=== PATIENT | female | born 1940 | race Caucasian/White ===

== ENCOUNTER → 2019-11-11 07:17 | Outpatient (CLI) | payer MEDICARE, SELFPAY ==
--- NOTE | ~2019-11-11 | XR_ITS ---
EXAMINATION: XR chest 2V EXAM DATE: 11/11/2019 07:55 INDICATION: Cough. TECHNIQUE: Frontal and lateral projections of the chest obtained and reviewed. Comparison is made to prior examination from 10/07/2018. FINDINGS: The lungs are clear. There are no pleural effusions. The cardiomediastinal silhouette is within normal limits. There is no pneumothorax suspected. The bones and soft tissues are unremarkab le. There is no significant interval change. IMPRESSION: No acute cardiopulmonary findings. Reviewed, dictated and finalized at location B. R PHYSICIAN
== END ==
PROVIDERS: PCP Nurse Practitioner; Visit Provider Nurse Practitioner
DX: R05 Cough (principal)
CPT/HCPCS: 71046

== ENCOUNTER 2020-02-24 07:15 | Outpatient (CLI) | payer MEDICARE, SELFPAY ==
--- NOTE | ~2020-02-24 | XR_ITS ---
XR chest 2V 02/24/2020 07:32 Indication: Cough Procedure: PA and lateral views of the chest Comparison: Comparison to multiple prior studies sequentially, with oldest reviewed study dated 11/2015. Findings: Borderline heart size. No focal air space disease, pulmonary edema, pleural effusion or cyn pected pneumothorax. No acute osseous abnormality. There is atherosclerosis of the aorta. Impression: 1: No acute cardiopulmonary disease. Reviewed, dictated and finalized at location A. Impression: 1: No acute cardiopulmonary disease.
== END 2020-02-24 07:16 | disposition home or self-care (01) ==
LOC: ANHIMG 07:21
PROVIDERS: PCP Internal Medicine; Visit Provider Nurse Practitioner
DX: R05 Cough (principal)
CPT/HCPCS: 71046

== ENCOUNTER 2020-08-18 16:38 | Emergency (ER) | payer MEDICARE, SELFPAY ==
[2020-08-18 16:52] VITALS: BP 178/78; PULSE 61; RESP 24; TEMP 37; O2SAT 99
--- NOTE | 2020-08-18 17:05 | ED.URI ---
HPI - URI/Sore Throat General Chief Complaint: Upper Respiratory Infection Stated Complaint: upper respiratory infection Source: patient Mode of arrival: ambulatory Limitations: no limitations History of Present Illness HPI Narrative: Patient is an 80-year-old female who presents complaining of sinus pressure, congestion, body aches and cough over the past week. She reports attempted to contact PCP without success. She reports intermittent mild shortness of breath. Denies fever. She reports taking [id number] Tylenol, staying well-hydrated and taking DayQuil and NyQuil. MD elicited complaint: nasal congestion and sinus pain Related Data Home Medications Medication Instructions Recorded Confirmed aspirin 81 mg tablet,delayed 81 mg PO DAILY 10/02/19 10/20/19 release coenzyme Q10 75 mg capsule 75 mg PO DAILY 10/02/19 10/20/19 omega-3 fatty acids-vitamin E mg PO DAILY cap 10/02/19 10/20/19 1,000 mg capsule Lactobacillus rhamnosus GG 10 1 cap PO DAILY 10/20/19 10/20/19 billion cell capsule Allergies Allergy/AdvReac Type Severity Reaction Status Date / Time levofloxacin Allergy Unknown Unknown Verified 08/18/20 17:12 Review of Systems Review of Systems: Narrative: CONSTITUTIONAL: Denies fever, chills, or sweats. EYES: Denies visual changes, redness, or discharge. ENT: Denies rhinorrhea, sore throat, or otalgia. Reports congestion and sinus pressure CARDIOVASCULAR: Denies chest pain, palpitations, or edema. RESPIRATORY: Reports intermittent cough and dyspnea. GASTROINTESTINAL: Denies abdominal pain, nausea, vomiting, or diarrhea. GENITOURINARY: Denies dysuria or hematuria. SKIN: Denies rash or itching. MUSCULOSKELETAL: Denies back pain, joint pain, reports myalgia NEUROLOGIC: Denies headache, numbness, dizziness, or weakness. PSYCHIATRIC: Denies anxiety or depression. [facility] Past Medical History Medical History (Updated 08/18/20 @ 17:24 by KHADAR Post) Cholangiocellular carcinoma Cholecystectomy planned CKD (chronic kidney disease) stage 1, GFR 90 ml/min or greater Elevated alkaline phosphatase level Essential (primary) hypertension Gastro-esophageal reflux disease without esophagitis History of gallbladder cancer IGT (impaired glucose tolerance) Mixed hyperlipidemia Post-menopausal Family History Family History Mother Family history of osteoarthritis Family history of Alzheimer's disease Family history of malignant neoplasm of breast in first degree relative Father Family history of alcoholism Family history of Alzheimer's disease Social History Social History Smoking status: Never smoker Alcohol intake: never Exam Narrative: Exam Narrative: GENERAL: Well-appearing, well-nourished, and in no acute distress. HEAD: Normocephalic, atraumatic. EYES: No redness or drainage. ENT: Mucous membranes pink and moist. CHEST: No respiratory distress. HEART: Regular rate and rhythm. EXTREMITIES: Normal range of motion. SKIN: Warm, dry, no rash. NEURO: No focal deficits. Alert and oriented x3. Gait steady. PSYCH: Normal affect. No signs of depression or anxiety. Course Vital Signs Vital signs: Vital Signs Temperature 37.0 C 08/18/20 16:52 Pulse Rate 61 08/18/20 16:52 Respiratory Rate 24 H 08/18/20 16:52 Blood Pressure 178/78 H 08/18/20 16:52 Pulse Oximetry 99 08/18/20 16:52 Temperature 37.0 C 08/18/20 16:52 Pulse Rate 61 08/18/20 16:52 Respiratory Rate 24 H 08/18/20 16:52 Blood Pressure 178/78 H 08/18/20 16:52 Pulse Oximetry 99 08/18/20 16:52 Reviewed. Patient has been instructed to follow-up with her PCP regarding her blood pressure. MDM - URI/Sore Throat MDM Narrative Medical decision making narrative: Patient's influenza test was negative. Discussed with patient Covid testing. Patient agrees to Covid testing at this ti
== END 2020-08-18 18:00 | disposition home or self-care (01) ==
PROVIDERS: Emergency Provider Nurse Practitioner; PCP Internal Medicine
DX: J06.9 Acute upper respiratory infection, unspecified (principal); U07.1 COVID-19; I12.9 Hypertensive chronic kidney disease with stage 1 through stage 4 chronic kidney disease, or unspecified chronic kidney disease; N18.30 Chronic kidney disease, stage 3 unspecified; K21.9 Gastro-esophageal reflux disease without esophagitis; E78.2 Mixed hyperlipidemia; Z79.82 Long term (current) use of aspirin
CPT/HCPCS: 87804; 99212; G0463

== ENCOUNTER 2020-08-19 06:54 | Outpatient (NON) | payer MEDICARE, SELFPAY ==
[2020-08-20 06:46] LABS: SARS-CoV-2 RNA PCR Positive
== END 2020-08-19 06:55 ==
PROVIDERS: PCP Internal Medicine; Visit Provider Nurse Practitioner
DX: U07.1 COVID-19 (principal)
CPT/HCPCS: 87635; C9803; U0003

== ENCOUNTER 2020-12-07 08:31 | Outpatient (CLI) | payer MEDICARE, SELFPAY | END 2020-12-07 08:32 | disposition home or self-care (01) | LOC: ANHCOVIDVC 08:31 | PROVIDERS: PCP Internal Medicine | DX: Z23 Encounter for immunization (principal) | CPT/HCPCS: 0001A; 91300 ==

== ENCOUNTER 2020-12-28 08:23 | Outpatient (CLI) | payer MEDICARE, SELFPAY | END 2020-12-28 08:24 | LOC: ANHCOVIDVC 08:23 | PROVIDERS: PCP Internal Medicine | DX: Z23 Encounter for immunization (principal) | CPT/HCPCS: 0002A; 91300 ==

== ENCOUNTER → 2021-03-01 17:33 | Outpatient (CLI) | payer MEDICARE, SELFPAY ==
--- NOTE | ~2021-03-01 | MM_ITS ---
EXAMINATION: MM screening vickie BI w genesis HISTORY: Screening TECHNIQUE: Craniocaudal and mediolateral oblique 3-D tomosynthesis images were obtained and synthetic 2-D images were generated. CAD analysis was submitted and interpreted. COMPARISON: No prior mammogram is available for comparison at this institution. BREAST PARENCHYMAL COMPOSITION: There are scattered areas of fibroglandular density. FINDINGS: There is no evidence of suspicious mass, calcification, or architectural distortion to sugg est malignancy in either breast. There has been no suspicious interval change. IMPRESSION: 1. No mammographic evidence of malignancy. 2. Recommend routine screening mammography in one year. BI-RADS Category 1: Negative Reviewed, dictated and finalized at location A.
--- NOTE | ~2021-03-01 | DEXA_ITS ---
Bone Density Report Name: Rosaila Dooley Age: 80 Sex: Female Ethnicity: White Date of : 1940 Indication: osteopenia; postmenopausal Referring Provider: Radha Bryan Study: Bone densitometry was performed. Exam Date: March 01, 2021 Accession number: [id number] Bone Density: Region BMD T-score Z-score Classification AP Spine (L1-L4) 0.978 -0.6 2.1 Normal Femoral Neck (Left) 0.538 -2.8 -0.5 Osteoporosis Total Hip (Left) 0.768 -1.4 0.7 Osteopenia Femoral Neck (Right) 0.520 -3.0 -0.6 Osteoporosis Total Hip (Right) 0.680 -2.1 0.0 Osteopenia Total Hip Mean 0.724 -1.8 0.4 Osteopenia World Health Organization criteria for BMD impression classify patients as: Normal (T-score at or above -1.0), Osteopenia (T-score between -1.0 and -2.5), or Osteoporosis (T-score at or below -2.5). 10-year Fracture Risk: FRAX not reported because: Some T-score for Spine Total or Hip Total or Femoral Neck at or below -2.5 Previous Exams: Region Exam Age BMD T-score BMD Change BMD Change Date g/cm2 vs Baseline vs Previous AP Spine(L1-L4) 03/01/2021 80 0.978 -0.6 0.098 0.098 07/14/2008 68 0.881 -1.5 Total Hip(Left) 03/01/2021 80 0.768 -1.4 -0.063 -0.063 07/14/2008 68 0.830 -0.9 Total Hip(Right) 03/01/2021 80 0.680 -2.1 -0.042 -0.042 07/14/2008 68 0.722 -1.8 *Denotes significance at 95% confidence level, LSC for AP Spine = 0.022 g/cm2, LSC for Total Hip = 0.027 g/cm2 Clinical Information Provided by Patient: Patient maximum height was 57.0 Menopause Age: 48 No regular weight bearing exercise Does not regularly consume dairy products Drinks caffeinated beverages Onset of menses at age 12 Number of children 2 Impression: The patient has osteoporosis, based on the Right Femoral Neck T-score. No significant bone loss was observed. Discussion: INCREASED RISK OF FRACTURE. BONE DENSITY IS UNDESIRABLY LOW AT ONE OR MORE SKELETAL SITES, CONSISTENT WITH POSTMENOPAUSAL OSTEOPOROSIS. This patient's lowest T-score meets the World Health Organization's (WHO) criteria for osteoporosis at one or more sites (T-score -2.5 or below). In untreated patients, the risk of osteoporotic fracture increases approximately two-fold for each 1.0 SD decrease in T-score. Low bone density is not the only risk factor for fracture; also consider factors such as patient's age, frailty or poor health, risk of falling, risk of in
== END ==
PROVIDERS: PCP Internal Medicine; Visit Provider Nurse Practitioner
DX: Z12.31 Encounter for screening mammogram for malignant neoplasm of breast (principal); Z78.0 Asymptomatic menopausal state; M85.89 Other specified disorders of bone density and structure, multiple sites; M81.0 Age-related osteoporosis without current pathological fracture
CPT/HCPCS: 77063; 77067; 77080

== ENCOUNTER 2021-03-10 14:32 | Emergency (ER) | payer MEDICARE, SELFPAY ==
[2021-03-10 15:02] VITALS: BP 125/70; PULSE 76; RESP 18; TEMP 36.6; O2SAT 100
[2021-03-10 15:18] LABS: Basophils Percent Auto 0.5 % (0.2-1.2); Eosinophils Percent Auto 0.5 % (0-4.4); Hematocrit 40.6 % (37.0-47.0); Hemoglobin 13.5 g/dL (12.0-15.0); Immature Granulocyte Absolute 0.04 K/mm3 (0.00-0.031); Immature Granulocyte Percent A 0.5 % (0-0.5); Immature Platelet Fraction Pct 4.5 % (0.9-11.2); Lymphocytes Absolute Auto 0.69 K/mm3 (0.9-3.2); Lymphocytes Percent Auto 8.7 % (18.3-44.2); Mean Corpuscular HGB Conc 33.3 g/dl (32-36); Mean Corpuscular Hemoglobin 29.7 pg (26-34); Mean Corpuscular Volume 89.4 fl (80-100); Mean Platelet Volume 10.2 fl (7.4-10.4); Monocytes Absolute Auto 0.4 K/mm3 (0.1-0.6); Monocytes Percent Auto 5.3 % (2.6-8.5); Neutrophils Absolute Auto 6.7 K/mm3 (1.3-6.7); Neutrophils Percent Auto 84.5 % (45.5-73.1); Platelet Count Result 162 k/mm3 (150-375); Red Blood Count 4.54 M/mm3 (4.2-5.4); Red Cell Distribution Width 13.3 % (11.5-14.5); White Blood Count 7.9 K/mm3 (4.5-10.0)
[2021-03-10 15:26] LABS: Alanine Aminotransferase 36 U/L (4-35); Albumin Level 4.1 g/dL (3.5-5.1); Alkaline Phosphatase 225 U/L (38-126); Anion Gap 10 mmol/L (8-16); Aspartate Amino Transferase 46 U/L (14-36); Blood Urea Nitrogen 18 mg/dL (7-17); Calcium 9.9 mg/dL (8.4-10.2); Carbon Dioxide 26 mmol/L (22-30); Chloride 105 mmol/L (98-107); Estimated CRCL calculation 39 ml/min; Estimated Glomerular Filt Rate 48; Glucose 110 mg/dL (65-105); Lipase 34 U/L (23-300); Potassium 3.9 mmol/L (3.4-5.0); Sodium 141 mmol/L (137-145)
[2021-03-10 16:53] VITALS: BP 131/61; PULSE 72; RESP 18; O2SAT 98
[2021-03-10 18:21] LABS: Add Urine Microscopic? YES; Appearance Urine Cloudy (Clear); Bacteria Urine 2+ /hpf; Bilirubin Urine Negative (Negative); Blood Urine 1+ (Negative); Color Urine Yellow (Yellow); Glucose Urine UA Negative (Negative); Ketones Urine Trace mg/dL (Negative); Leukocyte Esterase Ur Trace LEU/UL (Negative); Mucus Urine Rare /lpf; Nitrate Urine Negative (Negative); Protein Urine Negative (Negative); Specific Grav Ur 1.019 (1.001-1.035); Squamous Epithelial Cell Urine Many /hpf (Few)
--- NOTE | 2021-03-10 18:33 | ED.ABDPAIN ---
HPI - Abdominal Pain General Chief Complaint: Abdominal Pain Stated Complaint: abd pain Time Seen by Provider: 03/10/21 18:10 History of Present Illness HPI narrative: 80 yo female w/ h/o right sided abdominal wall hernia presented to the ED for abdominal pain. She reports that earlier in the day the hernia was bulging and she was not able to get it back in. She was having severe pain and nausea. She was in the waiting room for a few hours and during that time all of her symptoms resolved. She is planning to get outpatient surgical follow-up. Related Data Home Medications Medication Instructions Recorded Confirmed aspirin 81 mg tablet,delayed 81 mg PO DAILY 10/02/19 03/14/21 release omega-3 fatty acids-vitamin E mg PO DAILY cap 10/02/19 03/14/21 1,000 mg capsule Allergies Allergy/AdvReac Type Severity Reaction Status Date / Time levofloxacin Allergy Unknown shakes Verified 03/14/21 07:33 Review of Systems Review of Systems: All systems reviewed & are unremarkable except as noted in HPI and below Constitutional: Constitutional: Denies chills and Denies fever(s) Cardiovascular: Cardiovascular: Denies chest pain Respiratory: Respiratory: Denies dyspnea Gastrointestinal: Gastrointestinal: Reports abdominal pain, Denies constipation, Denies diarrhea, Reports nausea and Denies vomiting Neurologic: Denies dizziness and Denies weakness PMFSH Past Medical History Medical History Cholangiocellular carcinoma Cholecystectomy planned CKD (chronic kidney disease) stage 1, GFR 90 ml/min or greater Elevated alkaline phosphatase level Essential (primary) hypertension Gastro-esophageal reflux disease without esophagitis History of gallbladder cancer IGT (impaired glucose tolerance) Mixed hyperlipidemia Post-menopausal Postmenopausal Family History Family History Mother Family history of osteoarthritis Family history of Alzheimer's disease Family history of malignant neoplasm of breast in first degree relative Father Family history of alcoholism Family history of Alzheimer's disease Social History Social History Smoking status: Never smoker Second hand tobacco smoke exposure: Yes Alcohol intake: never Gender identity (if verbalized by the patient): Female Exam Const: General: healthy appearing, no acute distress and alert Orientation/consciousness: patient oriented x3 HENMT: Head: normal to inspection Neck: Neck: normal visual inspection and no lymphadenopathy Chest: Chest palpation & inspection: no tenderness Resp: Effort & Inspection: normal respiratory effort Auscultation: clear to auscultation bilaterally, no rales, no rhonchi and no wheezes Cardio: Jugular venous distension: no JVD Rate: regular rate Rhythm: regular rhythm Heart sounds: no murmurs GI: Inspection: non-distended GI Palp: Yes Soft to palpation and No Tenderness to palpation present (GI) Skin: General skin exam: normal color Neuro: General: patient oriented x3 and moves all extremities Speech: normal speech Extrem: General: no edema Psych: Appearance: well kempt Affect: normal affect Course Vital Signs Vital signs: Vital Signs Temperature 36.6 C 03/10/21 15:02 Pulse Rate 76 03/10/21 15:02 Respiratory Rate 18 03/10/21 15:02 Blood Pressure 125/70 03/10/21 15:02 Pulse Oximetry 100 03/10/21 15:02 Temperature 36.6 C 03/10/21 15:02 Pulse Rate 72 03/10/21 16:53 Respiratory Rate 18 03/10/21 16:53 Blood Pressure 131/61 03/10/21 16:53 Pulse Oximetry 98 03/10/21 16:53 MDM - Abdominal Pain MDM Narrative Medical decision making narrative: Symptoms resolved prior to my evaluation. She is eager for discharge. Labs stable. Differential Diagnosis Differential diagnosis: Likely constipation, small bowel obstr
== END 2021-03-10 18:53 | disposition home or self-care (01) ==
PROVIDERS: Emergency Medicine; Emergency Provider Emergency Medicine; PCP Internal Medicine
DX: K43.9 Ventral hernia without obstruction or gangrene (principal); I12.9 Hypertensive chronic kidney disease with stage 1 through stage 4 chronic kidney disease, or unspecified chronic kidney disease; N18.1 Chronic kidney disease, stage 1; K21.9 Gastro-esophageal reflux disease without esophagitis; E78.2 Mixed hyperlipidemia; Z79.82 Long term (current) use of aspirin; Z85.09 Personal history of malignant neoplasm of other digestive organs
CPT/HCPCS: 36415; 80053; 81001; 83690; 85025; 85055; 99283

== ENCOUNTER 2021-04-04 14:12 | Outpatient (CLI) | payer MEDICARE, SELFPAY ==
--- NOTE | ~2021-04-04 | CT_ITS ---
EXAMINATION: CT abdomen pelvis wo con EXAM DATE: 04/04/2021 14:43 INDICATION: K43.2 - Incisional hernia without obstruction or gangrene. Cholangiocellular cancer. TECHNIQUE: Spiral CT of the abdomen and pelvis was performed without contrast. Axial, coronal and s agittal images of the abdomen and pelvis were reviewed. The dose-length product (DLP) for this exami nation was 600.71 mGy-cm. The exposure was tailored according to patient size (auto mA exposure cont rol), and iterative reconstruction (ASIR) was used as additional dose reduction technique. Comparison is made to prior examination from 07/01/2015. FINDINGS: Large supraumbilical abdominal hernia containing nonobstructed transverse colon measuring a bout 12 cm diameter by 4 cm thickness. This was present on prior study, has demonstrated some increas e in size. There is another right mid abdominal wall hernia which with some fluid inside, hernia ambrosio uring about 6 cm in diameter by 2 cm in thickness. Probable pancreatic head/uncinate mass measuring 1.7 x 2.1 cm, could be cystic. Differential diagnosi s includes recurrent cholangiocarcinoma, lymph node, pseudocyst, intraductal papillary mucinous neopl asm (IPMN), mucinous cystic neoplasm (MCN), serous cystadenoma and neuroendocrine tumor. Correlate fo r history of pancreatitis. Probable cholecystectomy. There is pneumobilia and caudate lobe hypertrophy. Spleen upper limits of n ormal in size. Adrenal glands unremarkable. There is no nephrolithiasis or hydronephrosis. There is increase in size of right adnexal cystic mass, measuring 8 cm today (previously 4.4 cm 2015). No lady dence of focal wall thickening. Would favor cystadenoma over cystadenocarcinoma as most likely histol ogy. The bladder is unremarkable. There is no retroperitoneal or pelvic lymphadenopathy. Small to moderate-sized right inguinal hernia containing fluid. The appendix is not positively visualized. There is no pericecal inflammatory change to suggest appe ndicitis. There is a small bowel anastomosis. Some inflammation in the mesentery of the ileum and pos sible mild ileal wall edema, could be mild ileitis although no acute symptomatology was reported. The re is moderate sigmoid predominant colonic diverticulosis. There is no adjacent inflammatory change to suggest diverticulitis. There is a 4 cm duodenal diverticulum. There is expected amount of colonic stool. No free intraperitoneal gas. Trace pericardial effusion. The lung bases are unremarkable . There are no osteoblastic or osteolytic lesions identified. Mild to moderate lumbar levoscoliosis and moderate to severe spondylosis. There are no osteoblastic or osteolytic lesions identified. IMPRESSION: 1. 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 Excision should be considered. 2. Development of pancreatic head/uncinate mass, some differential considerations above. 3. Mild mesenteric inflammation supplying ileum, mild ileal edema. Appearance suspicious for mild il eitis. Any acute symptoms? 4. Two abdominal wall hernias, larger containing nonobstructed transverse colon. 5. Colonic diverticulosis. 6. Surgical changes. Reviewed, dictated and finalized at location A. IMPRESSION: 1. 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 Excision should be considered. 2. Development of pancreatic head/uncinate mass, some differential considerati ons above. 3. Mild mesenteric inflammation supplying ileum, mild ileal edema. Appearance suspicious for mild ileitis. Any acute symptoms? 4. Two abdominal wall hernias, larger containing nonobstructed transverse colo n. 5. Colonic diverticulosis. 6. Surgical changes.
== END 2021-04-04 14:13 | disposition home or self-care (01) ==
PROVIDERS: PCP Internal Medicine; Visit Provider Surgery
DX: K43.2 Incisional hernia without obstruction or gangrene (principal); K57.30 Diverticulosis of large intestine without perforation or abscess without bleeding
CPT/HCPCS: 74176

== ENCOUNTER 2021-04-08 07:46 | Emergency (ER) | payer MEDICARE, SELFPAY ==
--- NOTE | ~2021-04-08 | XR_ITS ---
EXAMINATION: XR foot LT min 3V DATE: 04/08/2021 08:40 INDICATION: Left great toe pain. TECHNIQUE: 4 views of left foot were obtained. COMPARISON: None. FINDINGS: Bone alignment is normal. No acute fracture. There is chronic heterotopic ossification dist al to lateral malleolus, likely from old injury. There is mild osteoarthritis of first metatarsophala ngeal joint and some of the midfoot joints. IMPRESSION: 1. Mild polyarticular osteoarthritis. Reviewed, dictated and finalized at location A.
[2021-04-08 07:54] VITALS: BP 160/72; PULSE 71; RESP 20; TEMP 36.3; O2SAT 99
--- NOTE | 2021-04-08 07:54 | ED.WOUNDLAC ---
HPI - Wound/Laceration General Chief Complaint: Wound/Laceration Stated Complaint: L foot wound Time Seen by Provider: 04/08/21 07:49 Source: patient Mode of arrival: ambulatory Limitations: no limitations History of Present Illness HPI narrative: Patient is a 80-year-old female who presents for evaluation of atraumatic left foot pain. Patient reports redness overlying the left great toe over the past 4 days. She reports mild pain but has been ambulatory. She denies any recent fall or injury. No wound to the foot. Does not recall stepping on anything. She denies weakness or numbness. She denies ankle pain. No knee pain. No history of this in the past. Patient states her has a history of gout and due to similar. She thought maybe that this was her first experience with gout. No history of skin infections. She denies any fever or chills. She reports mild swelling and redness at the site. Pain is mild in nature. Related Data Home Medications Medication Instructions Recorded Confirmed aspirin 81 mg tablet,delayed 81 mg PO DAILY 10/02/19 03/27/21 release omega-3 fatty acids-vitamin E mg PO DAILY cap 10/02/19 03/27/21 1,000 mg capsule cholecalciferol (vitamin D3) 50 mcg PO BID 04/08/21 Allergies Allergy/AdvReac Type Severity Reaction Status Date / Time levofloxacin Allergy Unknown shakes Verified 04/08/21 07:57 Review of Systems Review of Systems: Narrative: CONSTITUTIONAL: Denies fever CARDIOVASCULAR: Denies chest pain RESPIRATORY: Denies cough or dyspnea. GASTROINTESTINAL: Denies abdominal pain SKIN: Denies rash, reports redness over left great big toe MUSCULOSKELETAL: Denies back pain NEUROLOGIC: Denies headache [facility] Past Medical History Medical History Cholangiocellular carcinoma Cholecystectomy planned CKD (chronic kidney disease) stage 1, GFR 90 ml/min or greater Elevated alkaline phosphatase level Essential (primary) hypertension Gastro-esophageal reflux disease without esophagitis History of gallbladder cancer IGT (impaired glucose tolerance) Mixed hyperlipidemia Post-menopausal Postmenopausal Surgical History Surgical History Hx laparoscopic cholecystectomy Hx of resection of liver Family History Family History Mother Family history of osteoarthritis Family history of Alzheimer's disease Family history of malignant neoplasm of breast in first degree relative Father Family history of alcoholism Family history of Alzheimer's disease Social History Social History Smoking status: Never smoker Second hand tobacco smoke exposure: Yes Alcohol intake: never Gender identity (if verbalized by the patient): Female Exam Narrative: Exam Narrative: GENERAL: Awake, alert, conversant HEAD: Normocephalic, atraumatic. EYES: PERRLA and EOMI. ENT: Nares clear, no rhinorrhea or epistaxis. Mucous membranes moist. NECK: Supple. CHEST: No respiratory distress, breathing even and non labored HEART: Regular rate, sinus rhythm ABDOMEN:Non distended, non tender EXTREMITIES: Normal range of motion. Mild edema, induration of the left first metatarsal. Minimal warmth. Full ROM without pain. No forefoot edema. No laceration or wound. SKIN: Warm, dry, no rash. NEURO:No focal deficits. Alert and oriented x3 Course Vital Signs Vital signs: Vital Signs Temperature 36.3 C L 04/08/21 07:54 Pulse Rate 71 04/08/21 07:54 Respiratory Rate 20 04/08/21 07:54 Blood Pressure 160/72 H 04/08/21 07:54 Pulse Oximetry 99 04/08/21 07:54 Temperature 36.3 C L 04/08/21 07:54 Pulse Rate 71 04/08/21 07:54 Respiratory Rate 20 04/08/21 07:54 Blood Pressure 160/72 H 04/08/21 07:54 Pulse Oximetry 99 04/08/21 07:54 MDM - Wound/Laceration MDM Narrative
[2021-04-08] MEDS: INDOMETHACIN 25 MG CAPSULE PO (08:36)
[2021-04-08 09:12] VITALS: BP 146/72; PULSE 74; RESP 18; O2SAT 98
== END 2021-04-08 09:13 | disposition home or self-care (01) ==
PROVIDERS: Emergency Provider Emergency Medicine; PCP Internal Medicine
DX: M19.072 Primary osteoarthritis, left ankle and foot (principal); I12.9 Hypertensive chronic kidney disease with stage 1 through stage 4 chronic kidney disease, or unspecified chronic kidney disease; N18.1 Chronic kidney disease, stage 1; K21.9 Gastro-esophageal reflux disease without esophagitis; E78.2 Mixed hyperlipidemia; Z79.82 Long term (current) use of aspirin
CPT/HCPCS: 73630; 99283; A9270

== ENCOUNTER 2021-12-20 15:43 | Emergency (ER) | payer MEDICARE, SELFPAY ==
[2021-12-20 15:59] VITALS: BP 145/63; PULSE 69; RESP 18; TEMP 36.6; O2SAT 100
--- NOTE | 2021-12-20 16:20 | ED.URI ---
HPI - URI/Sore Throat General Chief Complaint: Upper Respiratory Infection Stated Complaint: sorethroat,runny nose Time Seen by Provider: 12/20/21 16:22 Source: patient, RN notes reviewed and old records reviewed Mode of arrival: ambulatory Limitations: no limitations History of Present Illness HPI Narrative: 81 year old female who presents to [facility] care with complaints of sore throat and runny nose for about 3 week duration. Patient states that she has been taking an OTC allergy medication but symptoms continue. She reports that she has no acute cough or feelings of congestions, denies any acute dyspnea, no known fevers chills or sweats.Patient states that she is suppose to have some surgery coming up and she needs to get this stuff cleared up. Patient reports that she took a home COVID test after she had been ill for 4days and she was negative. Patient states that she had flu and COVID vaccinations MD elicited complaint: sore throat, rhinorrhea and nasal congestion Related Data Home Medications Medication Instructions Recorded Confirmed aspirin 81 mg tablet,delayed 81 mg PO DAILY 10/02/19 12/20/21 release omega-3 fatty acids-vitamin E 1 mg PO BID cap 10/02/19 12/20/21 1,000 mg capsule omeprazole 40 mg PO BID 12/20/21 12/20/21 Allergies Allergy/AdvReac Type Severity Reaction Status Date / Time levofloxacin Allergy Unknown shakes Verified 12/20/21 16:09 Review of Systems Review of Systems: CONSTITUTIONAL: Denies fever, chills, or sweats. EYES: Denies visual changes, redness, or discharge. ENT: Positive rhinorrhea, congestion, sore throat, no otalgia. CARDIOVASCULAR: Denies chest pain, palpitations, or edema. RESPIRATORY: Denies cough or dyspnea. GASTROINTESTINAL: Denies abdominal pain, nausea, vomiting, or diarrhea. GENITOURINARY: Denies dysuria or hematuria. SKIN: Denies rash or itching. MUSCULOSKELETAL: Denies back pain, joint pain, or myalgia. NEUROLOGIC: Denies headache, numbness, or weakness. PSYCHIATRIC: Denies anxiety or depression. All systems reviewed & are unremarkable except as noted in HPI and below PMFSH Past Medical History Medical History Cholangiocellular carcinoma Cholecystectomy planned CKD (chronic kidney disease) stage 1, GFR 90 ml/min or greater Elevated alkaline phosphatase level Essential (primary) hypertension Gastro-esophageal reflux disease without esophagitis History of gallbladder cancer IGT (impaired glucose tolerance) Mixed hyperlipidemia Post-menopausal Postmenopausal Surgical History Surgical History Hx laparoscopic cholecystectomy Hx of resection of liver Family History Family History Mother Family history of osteoarthritis Family history of Alzheimer's disease Family history of malignant neoplasm of breast in first degree relative Father Family history of alcoholism Family history of Alzheimer's disease Social History Social History Smoking status: Never smoker Second hand tobacco smoke exposure: Yes Alcohol intake: never Gender identity (if verbalized by the patient): Female Comments At time of signature, agree with nursing past medical, surgical, social and family history. There is no relevant family history pertinent to the presenting complaint Exam Narrative: GENERAL: Well-appearing, well-nourished, and in no acute distress. HEAD: Normocephalic, atraumatic. EYES: PERRLA and EOMI. ENT: Nares red with clear rhinorrhea no epistaxis. Mucous membranes moist.TM's normal with good light reflex, throat red with tonsil stones noted no acute enlarged tonsils noted some post nasal drainage present. NECK: Supple. no lymphadenopathy CHEST: Clear to auscultation. No respiratory distress.no cough,SAO2 100% on room air HEART: Regular rate and rh
== END 2021-12-20 16:51 | disposition home or self-care (01) ==
PROVIDERS: Emergency Provider Registered Nurse; PCP Internal Medicine
DX: J06.9 Acute upper respiratory infection, unspecified (principal); I12.9 Hypertensive chronic kidney disease with stage 1 through stage 4 chronic kidney disease, or unspecified chronic kidney disease; N18.1 Chronic kidney disease, stage 1; K21.9 Gastro-esophageal reflux disease without esophagitis; E78.2 Mixed hyperlipidemia; R73.02 Impaired glucose tolerance (oral); Z85.09 Personal history of malignant neoplasm of other digestive organs
CPT/HCPCS: 87081; 87880; 99213; G0463

== ENCOUNTER 2022-02-27 10:51 | Emergency (ER) | payer MEDICARE, SELFPAY ==
--- NOTE | ~2022-02-27 | XR_ITS ---
EXAMINATION: XR chest 2V DATE: 02/27/2022 12:01 INDICATION: Productive cough. TECHNIQUE: Frontal and lateral views of the chest were obtained. COMPARISON: Chest 2 views 02/24/2020 FINDINGS: There is mild atelectasis at left lung base. No pleural effusion or pneumothorax. The heart size is normal. IMPRESSION: 1. Mild atelectasis at left lung base. Reviewed, dictated and finalized at location A.
[2022-02-27 11:09] VITALS: BP 149/62; PULSE 67; RESP 18; TEMP 36.2; O2SAT 100
--- NOTE | 2022-02-27 11:10 | ED.URI ---
HPI - URI/Sore Throat General Chief Complaint: Upper Respiratory Infection Stated Complaint: Cough,Shortness of Breath Time Seen by Provider: 02/27/22 12:14 Source: patient and RN notes reviewed Mode of arrival: ambulatory Limitations: no limitations History of Present Illness MD elicited complaint: cough Related Data Home Medications Medication Instructions Recorded Confirmed aspirin 81 mg tablet,delayed 81 mg PO DAILY 10/02/19 02/27/22 release (Adult Aspirin Regimen) omega-3 fatty acids-vitamin E 1 mg PO BID 10/02/19 02/27/22 1,000 mg capsule omeprazole 40 mg capsule,delayed 40 mg PO BID 12/20/21 02/27/22 release Allergies Allergy/AdvReac Type Severity Reaction Status Date / Time levofloxacin Allergy Unknown shakes Verified 02/27/22 11:39 Review of Systems Review of Systems: CONSTITUTIONAL: Denies malaise, chills, sweats, or fever. EYES: Denies visual changes, redness, or discharge. ENT: Reports rhinorrhea, congestion, sinus pain, otalgia and sore throat. CARDIOVASCULAR: Denies chest pain, palpitations, or edema. RESPIRATORY: Reports cough. Denies dyspnea. GASTROINTESTINAL: Denies abdominal pain, nausea, vomiting, diarrhea SKIN: Denies rash or itching. MUSCULOSKELETAL: Denies myalgia. NEUROLOGIC: Denies headache. All systems reviewed & are unremarkable except as noted in HPI and below PMFSH Past Medical History Medical History Cholangiocellular carcinoma Cholecystectomy planned CKD (chronic kidney disease) stage 1, GFR 90 ml/min or greater Elevated alkaline phosphatase level Essential (primary) hypertension Gastro-esophageal reflux disease without esophagitis History of gallbladder cancer IGT (impaired glucose tolerance) Mixed hyperlipidemia Post-menopausal Postmenopausal Surgical History Surgical History Hx laparoscopic cholecystectomy Hx of resection of liver Family History Family History Mother Family history of osteoarthritis Family history of Alzheimer's disease Family history of malignant neoplasm of breast in first degree relative Father Family history of alcoholism Family history of Alzheimer's disease Social History Social History Smoking status: Never smoker Second hand tobacco smoke exposure: Yes Alcohol intake: never Gender identity (if verbalized by the patient): Female Comments At time of signature, agree with nursing past medical, surgical, social and family history. There is no relevant family history pertinent to the presenting complaint Exam Narrative: GENERAL: Well-appearing, well-nourished, and in no acute distress. HEAD: Normocephalic EYES: PERRLA, conjunctivae clear ENT: Nares clear, turbinates edematous and erythematous, clear discharge. Mucous membranes moist. TM pearly forrest with dull light reflex bilaterally; no tragal tenderness. Oropharynx not erythematous without lesions. Tonsils not enlarged and without exudate, no drooling, no hoarseness, no trismus, uvula midline. NECK: Supple. No lymphadenopathy CHEST: Clear to auscultation, breath sounds equal. No wheezing, rhonchi, rales, or stridor. No respiratory distress, speaks in full sentences. HEART: Regular rate and rhythm. No murmur heard. SKIN: Warm, dry, no rash. NEURO: Alert and oriented x3. PSYCH: Normal mood and affect Course Course Emergency Course: Patient is aware of diagnosis, understands and agrees to treatment plan. Anticipatory guidance given. Patient agrees to follow-up as directed and is aware of reasons to seek care at the emergency department. Portions of this record may have been created with voice recognition software Level of Care: Express Care Visit Vital Signs Vital signs: Vital Signs Temperature 97.1 F L 02/27/22 11:09 Pulse Rate 67 02/27/22 1
== END 2022-02-27 12:27 | disposition home or self-care (01) ==
PROVIDERS: Emergency Provider Nurse Practitioner; PCP Internal Medicine
DX: R05.9 Cough, unspecified (principal); R91.8 Other nonspecific abnormal finding of lung field; Z20.822 Contact with and (suspected) exposure to COVID-19; I12.9 Hypertensive chronic kidney disease with stage 1 through stage 4 chronic kidney disease, or unspecified chronic kidney disease; N18.1 Chronic kidney disease, stage 1; Z85.09 Personal history of malignant neoplasm of other digestive organs; K21.9 Gastro-esophageal reflux disease without esophagitis; E78.2 Mixed hyperlipidemia
CPT/HCPCS: 71046; 87426; 99213; C9803; G0463

== ENCOUNTER → 2022-05-11 10:58 | Outpatient (CLI) | payer MEDICARE, SELFPAY ==
--- NOTE | ~2022-05-11 | MM_ITS ---
EXAMINATION: MM screening vickie BI w genesis HISTORY: Screening mammogram, family history of breast cancer in her mother. TECHNIQUE: Craniocaudal and mediolateral oblique 3-D tomosynthesis images were obtained and synthetic 2-D images were generated. CAD analysis was submitted and interpreted. COMPARISON: 03/01/2021, 09/18/2019, 07/31/2018 BREAST PARENCHYMAL COMPOSITION: There are scattered areas of fibroglandular density. FINDINGS: There is no suspicious mass, calcification, or architectural distortion to suggest malignan cy in either breast. There has been no suspicious interval change. IMPRESSION: 1. No mammographic evidence of malignancy. 2. Recommend routine screening mammography while the patient remains in good health. BI-RADS Category 1: Negative Reviewed, dictated and finalized at location A. IMPRESSION: 1. No mammographic evidence of malignancy. 2. Recommend routine screening mammography while the patient remains in good he alth. BI-RADS Category 1: Negative
== END ==
PROVIDERS: PCP Internal Medicine; Visit Provider Internal Medicine
DX: Z12.31 Encounter for screening mammogram for malignant neoplasm of breast (principal)
CPT/HCPCS: 77063; 77067

== ENCOUNTER 2022-05-31 13:06 | Emergency (ER) | payer MEDICARE, SELFPAY ==
--- NOTE | 2022-05-31 13:10 | ED.URI ---
HPI - URI/Sore Throat General Chief Complaint: Upper Respiratory Infection Stated Complaint: Sore Throat,SOB,Chills Time Seen by Provider: 05/31/22 13:27 Source: patient and RN notes reviewed Mode of arrival: ambulatory Limitations: no limitations History of Present Illness HPI Narrative: 81-year-old female presents to the [facility] with complaints of sore throat, chills without fever and generalized fatigue since Saturday, 4 days. Has taken Tylenol and gargled with salt water. Related Data Home Medications Medication Instructions Recorded Confirmed aspirin 81 mg tablet,delayed 81 mg PO DAILY 10/02/19 05/31/22 release (Adult Aspirin Regimen) omega-3 fatty acids-vitamin E 1 mg PO DAILY 10/02/19 05/31/22 1,000 mg capsule omeprazole 40 mg capsule,delayed 40 mg PO DAILY 12/20/21 05/31/22 release Allergies Allergy/AdvReac Type Severity Reaction Status Date / Time levofloxacin AdvReac Intermediate shakes Verified 05/31/22 13:08 Review of Systems Review of Systems: All systems reviewed & are unremarkable except as noted in HPI and below Constitutional: Constitutional: Reports no additional constitutional complaints, Denies chills and Denies fever(s) Eyes: Eyes: Reports no additional eye complaints ENT: Reports as per HPI and Reports sore throat Cardiovascular: Cardiovascular: Reports no additional cardiovascular complaints Respiratory: Respiratory: Reports no additional respiratory complaints Gastrointestinal: Gastrointestinal: Reports no additional gastrointestinal complaints Musculoskeletal: Musculoskeletal: Reports no additional musculoskeletal complaints Integumentary/Breasts: Skin/Breast: Reports system reviewed and no additional complaints, except as docu Neurologic: Reports system reviewed and no additional complaints, except as documented Psychiatric: Psychiatric: Reports no additional psychiatric complaints Allergic/Immunologic: Allergic/Immunologic: Reports no additional allergic/immunologic complaints [facility] Past Medical History Medical History (Updated 05/31/22 @ 19:46 by Carolina Peter APRN) Cholangiocellular carcinoma Cholecystectomy planned CKD (chronic kidney disease) stage 1, GFR 90 ml/min or greater Elevated alkaline phosphatase level Essential (primary) hypertension Gastro-esophageal reflux disease without esophagitis History of gallbladder cancer IGT (impaired glucose tolerance) Mixed hyperlipidemia Post-menopausal Postmenopausal Surgical History Surgical History (Updated 05/31/22 @ 13:41 by Carolina Peter APRN) H/O: hysterectomy Hx laparoscopic cholecystectomy Hx of resection of liver Family History Family History Mother Family history of osteoarthritis Family history of Alzheimer's disease Family history of malignant neoplasm of breast in first degree relative Father Family history of alcoholism Family history of Alzheimer's disease Social History Social History Smoking status: Never smoker Second hand tobacco smoke exposure: Yes Alcohol intake: never Gender identity (if verbalized by the patient): Female Comments At the time of my signature, I reviewed and agree with the nursing past medical, surgical, social, and family history. There is no relevant family history pertinent to the patient complaint. Exam Const: General: healthy appearing, no acute distress and alert Nutritional Appearance: well nourished Orientation/consciousness: patient oriented x3 Limitations: no limitations HENMT: Head: normal to inspection Ears: external ears normal, TM's normal bilaterally and EAC's normal General nose exam: Normal external nose present and Normal nares present Face and sinus: normal facial exam Mouth: Yes Normal oral and palatal mucosa present, Yes lip normal and Yes moist mucous membranes Throat: posterior oropharynx normal and uvula midli
[2022-05-31 13:17] VITALS: BP 146/62; PULSE 70; RESP 18; TEMP 36.5; O2SAT 100
[2022-05-31 20:07] LABS: SARS-CoV-2 RNA PCR Negative
== END 2022-05-31 13:53 | disposition home or self-care (01) ==
PROVIDERS: Emergency Provider Nurse Practitioner; PCP Internal Medicine
DX: J06.9 Acute upper respiratory infection, unspecified (principal); Z20.822 Contact with and (suspected) exposure to COVID-19; I12.9 Hypertensive chronic kidney disease with stage 1 through stage 4 chronic kidney disease, or unspecified chronic kidney disease; N18.1 Chronic kidney disease, stage 1; K21.9 Gastro-esophageal reflux disease without esophagitis; E78.2 Mixed hyperlipidemia; R73.01 Impaired fasting glucose
CPT/HCPCS: 87081; 87804; 87880; 99213; C9803; G0463; U0003; U0005

== ENCOUNTER 2022-11-24 11:22 | Emergency (ER) | payer MEDICARE, SELFPAY ==
--- NOTE | ~2022-11-24 | XR_ITS ---
XR shoulder RT min 2V DATE: 11/24/2022 11:51 INDICATION: Anterior shoulder injury 4 days ago, posterior shoulder pain since TECHNIQUE: 3 views COMPARISON: None FINDINGS: There is diffuse osteopenia. There is rotator cuff atrophy, the humeral head abutting the undersurface of the acromion process. No evidence of dislocation at the acromioclavicular and glenohumeral joints. Fracture of the body of the scapula cannot be excluded on this examination. Consider CT right shoulde r examination. IMPRESSION: Cannot exclude fracture of the body of the scapula. Consider CT right shoulder examinatio n as clinically appropriate Rotator cuff atrophy Osteopenia Reviewed, dictated and finalized at location A. [facility] IMPRESSION: Cannot exclude fracture of the body of the scapula. Consider CT rig ht shoulder examination as clinically appropriate Rotator cuff atrophy Osteopenia
[2022-11-24 11:31] VITALS: BP 149/66; PULSE 74; RESP 18; TEMP 36.7; O2SAT 100
--- NOTE | 2022-11-24 12:12 | ED.UPPEXIN ---
HPI - Extremity Injury (Upper) General Chief Complaint: Extremity Injury, Upper Stated Complaint: Rt Shoulder Pain Time Seen by Provider: 11/24/22 11:43 Source: patient Mode of arrival: ambulatory Limitations: no limitations History of Present Illness HPI narrative: Patient presents today complaining of right shoulder pain and bruising. 3-4 days ago patient struck her right shoulder on a door frame as she was walking into a room at home. Since that time she has some bruising and swelling to the area. Denies numbness or tingling in the arm or hand. Pain increases with movement of the arm. She is pain-free at rest, but increases to 2/10 with movement. She has been taking Tylenol with relief. Related Data Home Medications Medication Instructions Recorded Confirmed aspirin 81 mg tablet,delayed 81 mg PO DAILY 10/02/19 11/24/22 release (Adult Aspirin Regimen) omega-3 fatty acids-vitamin E 1 mg PO DAILY 10/02/19 11/24/22 1,000 mg capsule Colace 1 tab-cap PO PRN PRN Constipation 11/24/22 11/24/22 hydrochlorothiazide 12.5 mg tablet 12.5 mg PO DAILY 11/24/22 11/24/22 Allergies Allergy/AdvReac Type Severity Reaction Status Date / Time levofloxacin AdvReac Intermediate shakes Verified 11/24/22 11:25 Review of Systems Review of Systems: CONSTITUTIONAL: Denies body aches, fever, chills, or sweats. EYES: Denies visual changes, redness, or discharge. ENT: Denies rhinorrhea, congestion, sore throat, or otalgia. CARDIOVASCULAR: Denies chest pain, palpitations, or edema. RESPIRATORY: Denies cough or dyspnea. GASTROINTESTINAL: Denies abdominal pain, nausea, vomiting, or diarrhea. GENITOURINARY: Denies dysuria or hematuria. SKIN: Denies rash, itching, or wounds. MUSCULOSKELETAL: Denies back pain, or myalgia.+ right shoulder pain and bruising NEUROLOGIC: Denies headache, numbness, tingling, or weakness. PSYCH: Denies depression or anxiety. [facility] Past Medical History Medical History Cholangiocellular carcinoma Cholecystectomy planned CKD (chronic kidney disease) stage 1, GFR 90 ml/min or greater Elevated alkaline phosphatase level Essential (primary) hypertension Gastro-esophageal reflux disease without esophagitis History of gallbladder cancer IGT (impaired glucose tolerance) Mixed hyperlipidemia Post-menopausal Postmenopausal Surgical History Surgical History H/O: hysterectomy Hx laparoscopic cholecystectomy Hx of resection of liver Family History Family History Mother Family history of osteoarthritis Family history of Alzheimer's disease Family history of malignant neoplasm of breast in first degree relative Father Family history of alcoholism Family history of Alzheimer's disease Social History Social History Smoking status: Never smoker Second hand tobacco smoke exposure: Yes Alcohol intake: never Lack of Transportation: No Lack of Food: Never True Current Housing: I Have Housing Concerned About Future Housing: No Difficulty Paying Gas/Electric Bills: No Difficulty Paying for Meds: No Currently Unemployed: No Education: High School Diploma/GED Difficulty w/ Childcare or Family Care: No Gender identity (if verbalized by the patient): Female Comments At time of signature, I have reviewed and agree with nursing past medical, surgical, social and family history unless otherwise noted. Please see nursing chart for further information. There is no relevant family history pertinent to the presenting complaint Exam Narrative: GENERAL: Well-appearing, well-nourished, and in no acute distress. HEAD: Normocephalic, atraumatic. EYES: EOMI. No redness or drainage. Conjunctivae normal. ENT: Mucous membranes pink and moist. NECK: Normal AROM.
== END 2022-11-24 12:19 | disposition home or self-care (01) ==
PROVIDERS: Emergency Provider Nurse Practitioner; PCP Internal Medicine
DX: S40.011A Contusion of right shoulder, initial encounter (principal); W22.09XA Striking against other stationary object, initial encounter; I12.9 Hypertensive chronic kidney disease with stage 1 through stage 4 chronic kidney disease, or unspecified chronic kidney disease; N18.1 Chronic kidney disease, stage 1; K21.9 Gastro-esophageal reflux disease without esophagitis; E78.5 Hyperlipidemia, unspecified; Z85.09 Personal history of malignant neoplasm of other digestive organs
CPT/HCPCS: 73030; 99213; G0463

== ENCOUNTER 2023-01-21 13:16 | Emergency (ER) | payer MEDICARE, SELFPAY ==
[2023-01-21 13:27] VITALS: BP 151/82; PULSE 69; RESP 18; TEMP 36.4; O2SAT 99
--- NOTE | 2023-01-21 13:45 | ED.URI ---
HPI - URI/Sore Throat General Chief Complaint: Upper Respiratory Infection Stated Complaint: cold symptoms Time Seen by Provider: 01/21/23 13:40 Source: patient and RN notes reviewed Mode of arrival: ambulatory Limitations: no limitations History of Present Illness HPI Narrative: 82-year-old female presented for complaint of sinus pressure and congestion with cough. Symptoms worsening over the last 3 days. She endorses intermittent sinus congestion since 01/06/2023. Now with thick yellow nasal drainage. She has been taking Mucinex for symptoms. She denies shortness of breath, wheezing, nausea, vomiting, diarrhea, fevers or chills. Endorses sick family members including one with COVID. Hx HTN, cholangiocellular carcinoma, CKD MD elicited complaint: cough Related Data Home Medications Medication Instructions Recorded Confirmed aspirin 81 mg tablet,delayed 81 mg PO DAILY 10/02/19 01/21/23 release (Adult Aspirin Regimen) omega-3 fatty acids-vitamin E 1 mg PO DAILY 10/02/19 01/21/23 1,000 mg capsule Colace 1 tab-cap PO PRN PRN Constipation 11/24/22 01/21/23 niacin 500 mg tablet 500 mg PO BID 01/02/23 01/21/23 amlodipine 5 mg tablet 5 mg DAILY 01/21/23 01/21/23 Allergies Allergy/AdvReac Type Severity Reaction Status Date / Time levofloxacin AdvReac Intermediate shakes Verified 01/21/23 13:33 Review of Systems Review of Systems: CONSTITUTIONAL: Denies malaise, chills, sweats, fever EYES: Denies visual changes, redness, or discharge ENT: Reports rhinorrhea, congestion, sinus pain, Denies otalgia, sore throat CARDIOVASCULAR: Denies chest pain, palpitations, edema RESPIRATORY: Reports cough, post nasal drainage. Denies dyspnea GASTROINTESTINAL: Denies abdominal pain, nausea, vomiting, diarrhea SKIN: Denies rash or itching MUSCULOSKELETAL: Denies myalgia PMFSH Past Medical History Medical History Cholangiocellular carcinoma Cholecystectomy planned CKD (chronic kidney disease) stage 1, GFR 90 ml/min or greater Elevated alkaline phosphatase level Essential (primary) hypertension Gastro-esophageal reflux disease without esophagitis History of gallbladder cancer IGT (impaired glucose tolerance) Mixed hyperlipidemia Post-menopausal Postmenopausal Surgical History Surgical History H/O: hysterectomy Hx laparoscopic cholecystectomy Hx of resection of liver Family History Family History Mother Family history of osteoarthritis Family history of Alzheimer's disease Family history of malignant neoplasm of breast in first degree relative Father Family history of alcoholism Family history of Alzheimer's disease Social History Social History Smoking status: Never smoker Second hand tobacco smoke exposure: Yes Alcohol intake: never Substance use: never Substance use type: does not use Lack of Transportation: No Lack of Food: Never True Current Housing: I Have Housing Concerned About Future Housing: No Difficulty Paying Gas/Electric Bills: No Difficulty Paying for Meds: No Currently Unemployed: No Education: High School Diploma/GED Difficulty w/ Childcare or Family Care: No Gender identity (if verbalized by the patient): Female Exam Narrative: GENERAL: mildly Ill-appearing, nontoxic no acute distress. HEAD: Normocephalic EYES: PERRLA, conjunctivae clear ENT: Mucous membranes moist. Bilateral hearing aides. Right maxillary sinus tenderness. Oropharynx erythematous without tonsillar swelling, lesions or exudate, no drooling, no hoarseness, no trismus, uvula midline. CHEST: Clear to auscultation, breath sounds equal. No wheezing, rhonchi, rales, or stridor. No respiratory distress, speaks in full sentences. HEART: Regular rate and rhythm. No murmur heard. SKIN
== END 2023-01-21 13:57 | disposition home or self-care (01) ==
PROVIDERS: Emergency Provider Nurse Practitioner Family; PCP Internal Medicine
DX: J06.9 Acute upper respiratory infection, unspecified (principal); Z20.822 Contact with and (suspected) exposure to COVID-19; I12.9 Hypertensive chronic kidney disease with stage 1 through stage 4 chronic kidney disease, or unspecified chronic kidney disease; N18.1 Chronic kidney disease, stage 1; K21.9 Gastro-esophageal reflux disease without esophagitis; R73.02 Impaired glucose tolerance (oral); E78.2 Mixed hyperlipidemia; Z85.09 Personal history of malignant neoplasm of other digestive organs; Z79.82 Long term (current) use of aspirin
CPT/HCPCS: 87426; 87804; 99213; C9803; G0463

== ENCOUNTER 2023-04-01 17:50 | Emergency (ER) | payer MEDICARE, SELFPAY ==
--- NOTE | 2023-04-01 17:58 | ED.SKABFB ---
HPI - Skin/Abscess/Foreign Bdy General Chief complaint: Skin/Abscess/Foreign Body Stated complaint: Rash Time Seen by Provider: 04/01/23 17:58 Source: patient, RN notes reviewed and old records reviewed Mode of arrival: ambulatory Limitations: no limitations History of Present Illness HPI narrative: 82-year-old female presents to the [facility] with concerns of a rash to her abdomen, back, forearm, AC areas. States that she has recently stated in a cabin. Symptoms started Saturday has been bathing in [place] dish soap as well as Onset (ago): day(s) (3) Related Data Home Medications Medication Instructions Recorded Confirmed aspirin 81 mg tablet,delayed 81 mg PO DAILY 10/02/19 04/01/23 release (Adult Aspirin Regimen) omega-3 fatty acids-vitamin E 1 mg PO DAILY 10/02/19 04/01/23 1,000 mg capsule Colace 1 tab-cap PO PRN PRN Constipation 11/24/22 04/01/23 niacin 500 mg tablet 500 mg PO BID 01/02/23 04/01/23 Allergies Allergy/AdvReac Type Severity Reaction Status Date / Time levofloxacin AdvReac Intermediate shakes Verified 04/01/23 17:51 Review of Systems Review of Systems: All systems reviewed & are unremarkable except as noted in HPI and below Constitutional: Constitutional: Reports no additional constitutional complaints Eyes: Eyes: Reports no additional eye complaints ENT: Reports system reviewed and no additional complaints, except as documented Cardiovascular: Cardiovascular: Reports no additional cardiovascular complaints, Denies chest pain and Denies dyspnea Respiratory: Respiratory: Reports no additional respiratory complaints, Denies chest congestion, Denies cough and Denies dyspnea Gastrointestinal: Gastrointestinal: Reports no additional gastrointestinal complaints, Denies abdominal pain, Denies nausea and Denies vomiting Musculoskeletal: Musculoskeletal: Reports no additional musculoskeletal complaints Integumentary/Breasts: Skin/Breast: Reports as per HPI Neurologic: Reports system reviewed and no additional complaints, except as documented Psychiatric: Psychiatric: Reports no additional psychiatric complaints Allergic/Immunologic: Allergic/Immunologic: Reports no additional allergic/immunologic complaints PMFSH Past Medical History Medical History Cholangiocellular carcinoma Cholecystectomy planned CKD (chronic kidney disease) stage 1, GFR 90 ml/min or greater Elevated alkaline phosphatase level Essential (primary) hypertension Gastro-esophageal reflux disease without esophagitis History of gallbladder cancer IGT (impaired glucose tolerance) Mixed hyperlipidemia Post-menopausal Postmenopausal Surgical History Surgical History H/O: hysterectomy Hx laparoscopic cholecystectomy Hx of resection of liver Family History Family History Mother Family history of osteoarthritis Family history of Alzheimer's disease Family history of malignant neoplasm of breast in first degree relative Father Family history of alcoholism Family history of Alzheimer's disease Social History Social History Smoking status: Never smoker Second hand tobacco smoke exposure: Yes Alcohol intake: never Substance use: never Substance use type: does not use Lack of Transportation: No Lack of Food: Never True Current Housing: I Have Housing Concerned About Future Housing: No Difficulty Paying Gas/Electric Bills: No Difficulty Paying for Meds: No Currently Unemployed: No Education: High School Diploma/GED Difficulty w/ Childcare or Family Care: No Gender identity (if verbalized by the patient): Female Comments At the time of my signature, I reviewed and agree with the nursing past medical, surgical, social, and family history. There is no relevant family history per
[2023-04-01 18:00] VITALS: BP 174/70; PULSE 74; RESP 18; TEMP 36.4; O2SAT 100
[2023-04-01 18:02] VITALS: BP 174/70; PULSE 74; RESP 18; TEMP 36.4; O2SAT 100
== END 2023-04-01 18:14 | disposition home or self-care (01) ==
PROVIDERS: Emergency Provider Nurse Practitioner; PCP Nurse Practitioner
DX: S30.861A Insect bite (nonvenomous) of abdominal wall, initial encounter (principal); S20.469A Insect bite (nonvenomous) of unspecified back wall of thorax, initial encounter; S50.362A Insect bite (nonvenomous) of left elbow, initial encounter; S50.361A Insect bite (nonvenomous) of right elbow, initial encounter; W57.XXXA Bitten or stung by nonvenomous insect and other nonvenomous arthropods, initial encounter; I12.9 Hypertensive chronic kidney disease with stage 1 through stage 4 chronic kidney disease, or unspecified chronic kidney disease; N18.1 Chronic kidney disease, stage 1; K21.9 Gastro-esophageal reflux disease without esophagitis; E78.2 Mixed hyperlipidemia; Z85.09 Personal history of malignant neoplasm of other digestive organs
CPT/HCPCS: 99213; G0463

== ENCOUNTER 2023-08-06 17:54 | Emergency (ER) | payer MEDICARE, SELFPAY ==
--- NOTE | ~2023-08-06 | XR_ITS ---
EXAMINATION: XR chest 2V Exam Date/Time: 08/06/2023 18:34 MAGISTERIAL DISTRICT JUDGE HISTORY: cough with sob Comparison: 02/27/22. RESULT: Lines, tubes, and devices: None. Lungs and pleura: Patchy subsegmental and streaky opacities in the bilateral lower lungs. 6 mm pulmo nary nodule in the peripheral left lower lung, not seen in the prior studies Cardiomediastinal silhouette: Stable. Other: No acute osseous or upper abdominal finding. IMPRESSION: Subsegmental bibasilar atelectasis or consolidation. 6 mm left lower lung pulmonary nodule, recommend nonemergent but timely CT of the chest for further e valuation of this finding. Reviewed, dictated and finalized at location K. STERIAL DISTRICT JUDGE IMPRESSION: Subsegmental bibasilar atelectasis or consolidation. 6 mm left lower lung pulmonary nodule, recommend nonemergent but timely CT of t he chest for further evaluation of this finding.
[2023-08-06 18:22] VITALS: BP 135/45; PULSE 73; RESP 24; TEMP 36.7; O2SAT 98
--- NOTE | 2023-08-06 18:28 | ED.GENADULT ---
HPI - General Adult General Chief complaint: Upper Respiratory Infection Stated complaint: sob,hoarse Time Seen by Provider: 08/06/23 18:28 Source: patient, RN notes reviewed and old records reviewed Mode of arrival: ambulatory Limitations: no limitations History of Present Illness HPI narrative: 83-year-old female presents to the [facility] with complaints of shortness of breath and laryngitis since this morning Patient states she woke up this morning with shortness of breath. Did not talk to anybody all day and when she did talk to someone this afternoon started having a hoarse voice or laryngitis. Has been taking Mucinex for cough for about a week. Patient also reports that she has been more tired today. No swelling. Denies chest pain. Related Data Home Medications Medication Instructions Recorded Confirmed aspirin 81 mg tablet,delayed 81 mg PO DAILY 10/02/19 08/06/23 release (Adult Aspirin Regimen) omega-3 fatty acids-vitamin E 1 mg PO DAILY 10/02/19 08/06/23 1,000 mg capsule niacin 500 mg tablet 500 mg PO BID 01/02/23 08/06/23 sennosides 8.6 mg-docusate sodium 1 tablet PO DAILY 08/06/23 08/06/23 50 mg tablet (Stimulant Laxative Plus) Allergies Allergy/AdvReac Type Severity Reaction Status Date / Time levofloxacin AdvReac Intermediate shakes Verified 08/06/23 18:24 Review of Systems Review of Systems: All systems reviewed & are unremarkable except as noted in HPI and below Constitutional: Constitutional: Reports as per HPI and Reports fatigue Eyes: Eyes: Reports no additional eye complaints ENT: Reports system reviewed and no additional complaints, except as documented Cardiovascular: Cardiovascular: Reports as per HPI, Denies chest pain, Denies leg edema, Denies lightheadedness and Reports dyspnea Respiratory: Respiratory: Reports as per HPI, Denies chest congestion, Reports cough and Reports dyspnea Gastrointestinal: Gastrointestinal: Reports no additional gastrointestinal complaints, Denies abdominal pain, Denies nausea and Denies vomiting Musculoskeletal: Musculoskeletal: Reports no additional musculoskeletal complaints Integumentary/Breasts: Skin/Breast: Reports system reviewed and no additional complaints, except as docu Neurologic: Reports system reviewed and no additional complaints, except as documented Psychiatric: Psychiatric: Reports no additional psychiatric complaints Allergic/Immunologic: Allergic/Immunologic: Reports no additional allergic/immunologic complaints PMFSH Past Medical History Medical History Cholangiocellular carcinoma Cholecystectomy planned CKD (chronic kidney disease) stage 1, GFR 90 ml/min or greater Elevated alkaline phosphatase level Essential (primary) hypertension Gastro-esophageal reflux disease without esophagitis History of gallbladder cancer IGT (impaired glucose tolerance) Mixed hyperlipidemia Post-menopausal Postmenopausal Surgical History Surgical History H/O: hysterectomy Hx laparoscopic cholecystectomy Hx of resection of liver Family History Family History Mother Family history of osteoarthritis Family history of Alzheimer's disease Family history of malignant neoplasm of breast in first degree relative Father Family history of alcoholism Family history of Alzheimer's disease Social History Social History Smoking status: Never smoker Second hand tobacco smoke exposure: Yes Alcohol intake: never Substance use: never Substance use type: does not use Lack of Transportation: No Lack of Food: Never True Current Housing: I Have Housing Concerned About Future Housing: No Difficulty Paying Gas/Electric Bills: No Difficulty Paying for Meds: No Currently Unemployed: No Education: High School Dipl
--- NOTE | 2023-08-06 18:47 | ECG_ITS ---
Measurements Intervals [place] Rate: 76 P: 60 [place]: 199 QRS: -26 QRSD: 146 T: 115 QT: 419 QTc: 472 Interpretive Statements SINUS RHYTHM FREQUENT VENTRICULAR PREMATURE COMPLEXES BORDERLINE AV CONDUCTION DELAY LEFT BUNDLE BRANCH BLOCK BASELINE ARTIFACT- I, II, AVR, AVL ABNORMAL ECG NO PREVIOUS ECG AVAILABLE FOR COMPARISON Electronically Signed On 08-06-2023 20:09:29 AUTO CAMP ATTENDANT by Ottoniel Doan D.O.
== END 2023-08-06 19:03 | disposition short-term general hospital (02) ==
PROVIDERS: Emergency Provider Nurse Practitioner; PCP Family Medicine
DX: R06.02 Shortness of breath (principal); R94.31 Abnormal electrocardiogram [ECG] [EKG]; I12.9 Hypertensive chronic kidney disease with stage 1 through stage 4 chronic kidney disease, or unspecified chronic kidney disease; N18.1 Chronic kidney disease, stage 1; K21.9 Gastro-esophageal reflux disease without esophagitis; E78.2 Mixed hyperlipidemia; Z85.09 Personal history of malignant neoplasm of other digestive organs; Z79.82 Long term (current) use of aspirin
CPT/HCPCS: 71046; 93005; 99213; G0463

== ENCOUNTER 2023-08-06 19:18 | Inpatient (IN) | payer MEDICARE, SELFPAY ==
--- NOTE | ~2023-08-06 | US_ITS ---
EXAMINATION: US venous doppler [facility] DATE: 08/07/2023 11:56 INDICATION: Shortness of breath TECHNIQUE: Pino scale images without and with compression and Doppler images of the bilateral lower e xtremity veins were obtained. COMPARISON: None FINDINGS: The right common femoral vein, profunda femoral vein, femoral vein, popliteal vein, peroneal trunk, p osterior tibial veins, and greater saphenous vein are patent. The left common femoral vein, profunda femoral vein, femoral vein, popliteal vein, peroneal trunk, po sterior tibial veins, and greater saphenous vein are patent. IMPRESSION: 1. Patent bilateral lower extremity veins. No evidence of deep venous thrombosis. Reviewed, dictated and finalized at location B. LABRATOR OPERATOR IMPRESSION: 1. Patent bilateral lower extremity veins. No evidence of deep venous thrombosi s.
--- NOTE | ~2023-08-06 | XR_ITS ---
EXAMINATION: XR chest 2V Exam Date/Time: 08/06/2023 19:55 WORD PROCESSOR TECHNICIAN HISTORY: INCREASING SOB THAT STARTED THIS MORNING Comparison: 08/06/2023 at 6:41 PM. RESULT: Lines, tubes, and devices: None. Lungs and pleura: Somewhat improved streaky bibasilar opacities. Persistent nodular opacification pr ojecting over the left lower lung. Cardiomediastinal silhouette: Stable. Other: No acute osseous or upper abdominal finding. IMPRESSION: Improved bibasilar aeration. Stable pulmonary nodule, prior recommendation unchanged. Reviewed, dictated and finalized at location K. PROCESSOR TECHNICIAN IMPRESSION: Improved bibasilar aeration. Stable pulmonary nodule, prior recommendation unch anged.
--- NOTE | ~2023-08-06 | CT_ITS ---
EXAMINATION: CTA chest PE protocol DATE: 08/07/2023 11:22 INDICATION: Shortness of breath TECHNIQUE: Computed tomography angiography (CTA) of the chest was performed with 100 mL Omnipaque-350 intravenous contrast timed to evaluate the pulmonary arteries. Coronal maximum intensity projection 3D-reconstructions were created by the technologist. The dose-length product (DLP) was 518.65 mGy-cm. Automated exposure control and iterative reconstruction technique were employed. COMPARISON: 04/04/2021 FINDINGS: The pulmonary arteries are well-opacified. No pulmonary embolism is identified. There is m ild dependent atelectasis. No pleural effusion or pneumothorax. Cardiomegaly is noted. There is a tra ce pericardial effusion. There are no pathologically enlarged thoracic lymph nodes. Multinodular goit er is noted. There is chronic pneumobilia. There is a questionable hypoattenuating mass in the head o f the pancreas, not definitely changed since the comparison examination. IMPRESSION: 1. No pulmonary embolism or acute cardiopulmonary abnormality. 2. Possible pancreatic head mass without definite change since the comparison CT. Reviewed, dictated and finalized at location B. K PRINT OPERATOR IMPRESSION: 1. No pulmonary embolism or acute cardiopulmonary abnormality. 2. Possible pancreatic head mass without definite change since the comparison C T.
--- NOTE | 2023-08-06 18:51 | ECG_ITS ---
Measurements Intervals [place] Rate: 73 P: 44 [place]: 187 QRS: -42 QRSD: 138 T: 107 QT: 435 QTc: 481 Interpretive Statements SINUS RHYTHM VENTRICULAR TRIGEMINY LEFT AXIS DEVIATION LEFT BUNDLE BRANCH BLOCK ABNORMAL ECG COMPARED TO ECG 08/06/2023 18:51:58 LEFT-AXIS DEVIATION NOW PRESENT Electronically Signed On 08-07-2023 8:59:22 EKG TECHNICIAN by Ottoniel Doan D.O.
--- NOTE | 2023-08-06 19:34 | ECG_ITS ---
Measurements Intervals [place] Rate: 77 P: 45 [place]: 203 QRS: -17 QRSD: 137 T: 114 QT: 416 QTc: 471 Interpretive Statements SINUS RHYTHM FREQUENT VENTRICULAR PREMATURE COMPLEXES BORDERLINE AV CONDUCTION DELAY LEFT BUNDLE BRANCH BLOCK BASELINE ARTIFACT- I, AVR, AVL, V6 ABNORMAL ECG COMPARED TO ECG 08/06/2023 18:50:29 NO SIGNIFICANT CHANGES Electronically Signed On 08-06-2023 20:10:24 PARALEGAL SUPERVISOR by Ottoniel Doan D.O.
[2023-08-06 19:38] VITALS: BP 150/50; PULSE 73; RESP 20; TEMP 36.4; O2SAT 100
[2023-08-06 19:53] LABS: Basophils Percent Auto 0.7 % (0.2-1.2); Eosinophils Absolute Auto 0.1 K/mm3 (0-0.3); Eosinophils Percent Auto 1.6 % (0-4.4); Hematocrit 35.5 % (37.0-47.0); Hemoglobin 11.6 g/dL (12.0-15.0); Immature Granulocyte Absolute 0.01 K/mm3 (0.00-0.031); Immature Granulocyte Percent A 0.2 % (0-0.5); Immature Platelet Fraction Pct 4.9 % (0.9-11.2); Lymphocytes Absolute Auto 1.01 K/mm3 (0.9-3.2); Lymphocytes Percent Auto 23.4 % (18.3-44.2); Mean Corpuscular HGB Conc 32.7 g/dl (32-36); Mean Corpuscular Volume 91.7 fl (80-100); Mean Platelet Volume 10.7 fl (7.4-10.4); Monocytes Absolute Auto 0.3 K/mm3 (0.1-0.6); Monocytes Percent Auto 7.9 % (2.6-8.5); Neutrophils Absolute Auto 2.9 K/mm3 (1.3-6.7); Neutrophils Percent Auto 66.2 % (45.5-73.1); Platelet Count Result 97 k/mm3 (150-375); Red Blood Count 3.87 M/mm3 (4.2-5.4); Red Cell Distribution Width 14.2 % (11.5-14.5); White Blood Count 4.3 K/mm3 (4.5-10.0)
[2023-08-06 20:02] LABS: Alanine Aminotransferase 23 U/L (6-35); Albumin Level 3.9 g/dL (3.5-5.1); Alkaline Phosphatase 153 U/L (38-126); Anion Gap 9 mmol/L (8-16); Aspartate Amino Transferase 31 U/L (14-36); Blood Urea Nitrogen 20 mg/dL (7-17); Calcium 8.6 mg/dL (8.4-10.2); Carbon Dioxide 25 mmol/L (22-30); Chloride 106 mmol/L (98-107); Estimated CRCL calculation 33 ml/min; Estimated Glomerular Filt Rate 47; Glucose 102 mg/dL (65-110); Potassium 3.8 mmol/L (3.4-5.0); Sodium 140 mmol/L (137-145)
[2023-08-06 20:04] LABS: Platelet Estimate Decreased (Adequate); Schistocytes None Seen (NORMAL)
[2023-08-06 22:20] LABS: NT Pro B Type Natriuretic Pept 3250 pg/mL (19.9-100)
[2023-08-06 22:48] VITALS: BP 140/60; PULSE 72; RESP 15; O2SAT 99
[2023-08-06 22:55] LABS: Influenza A QL RT-PCR Negative (Negative); Influenza B QL RT-PCR Negative (Negative); RSV RNA, RT-PCR Negative (Negative); SARS-CoV-2 RNA PCR Negative (Negative)
--- NOTE | 2023-08-06 22:56 | ED.GENADULT ---
HPI - General Adult General Chief complaint: Shortness of Breath/Dyspnea Stated complaint: difficulty breathing sent from urgent care Time Seen by Provider: 08/06/23 21:19 History of Present Illness HPI narrative: This is an 83-year-old female presenting ED for shortness of breath. She seen in urgent care earlier today where she was evaluated for shortness of breath and laryngitis. She was unable to walk more than 20 steps without becoming short of breath. She was sent to the hospital to be evaluated for new onset heart failure. she denies fevers chills chest pain abdominal pain or lower extremity edema. Admits to fatigue. Related Data Home Medications Medication Instructions Recorded Confirmed aspirin 81 mg tablet,delayed 81 mg PO DAILY 10/02/19 08/06/23 release (Adult Aspirin Regimen) omega-3 fatty acids-vitamin E 1 mg PO DAILY 10/02/19 08/06/23 1,000 mg capsule niacin 500 mg tablet 500 mg PO BID 01/02/23 08/06/23 sennosides 8.6 mg-docusate sodium 1 tablet PO DAILY 08/06/23 08/06/23 50 mg tablet (Stimulant Laxative Plus) Allergies Allergy/AdvReac Type Severity Reaction Status Date / Time levofloxacin AdvReac Intermediate shakes Verified 08/06/23 18:24 [facility] Past Medical History Medical History Cholangiocellular carcinoma Cholecystectomy planned CKD (chronic kidney disease) stage 1, GFR 90 ml/min or greater Elevated alkaline phosphatase level Essential (primary) hypertension Gastro-esophageal reflux disease without esophagitis History of gallbladder cancer IGT (impaired glucose tolerance) Mixed hyperlipidemia Post-menopausal Postmenopausal Surgical History Surgical History H/O: hysterectomy Hx laparoscopic cholecystectomy Hx of resection of liver Family History Family History Mother Family history of osteoarthritis Family history of Alzheimer's disease Family history of malignant neoplasm of breast in first degree relative Father Family history of alcoholism Family history of Alzheimer's disease Social History Social History Smoking status: Never smoker Second hand tobacco smoke exposure: Yes Alcohol intake: never Substance use: never Substance use type: does not use Lack of Transportation: No Lack of Food: Never True Current Housing: I Have Housing Concerned About Future Housing: No Difficulty Paying Gas/Electric Bills: No Difficulty Paying for Meds: No Currently Unemployed: No Education: High School Diploma/GED Difficulty w/ Childcare or Family Care: No Gender identity (if verbalized by the patient): Female Exam Narrative: APPEARANCE: No apparent distress. Head: atraumatic. EYES: EOMI, NOSE: Atraumatic NECK: Trachea midline RESPIRATORY: No increased rate of breathing, scattered crackles CARDIOVASCULAR: irregular, no peripheral edema ABDOMINAL: Non-distended MUSCULOSKELETAl: No obvious deformities NEURO: Alert. Moving 4/4 extremities SKIN:: Warm, dry. Normal color PSYCHIATRIC: Normal affect Course Vital Signs Vital signs: Vital Signs Temperature 97.5 F L 08/06/23 19:38 Pulse Rate 73 08/06/23 19:38 Respiratory Rate 20 08/06/23 19:38 Blood Pressure 150/50 H 08/06/23 19:38 Pulse Oximetry 100 08/06/23 19:38 Oxygen Delivery Room Air 08/06/23 19:38 Temperature 97.5 F L 08/06/23 19:38 Pulse Rate 72 08/06/23 22:48 Respiratory Rate 15 08/06/23 22:48 Blood Pressure 140/60 08/06/23 22:48 Pulse Oximetry 99 08/06/23 22:48 Oxygen Delivery Room Air 08/06/23 21:24 Medical Decision Making [facility] Narrative Medical decision making narrative: -Course: 83-year-old female presenting with dyspnea on exertion. Workup showed a BNP of 3200. Point of care cardiothoracic x-ray echo showed
[2023-08-06 23:37] LABS: Troponin I < 0.012 ng/mL (0.000-0.034)
[2023-08-07] VITALS (14 sets, daily range): BP systolic 91–151; BP diastolic 46–91; PULSE 51–155; RESP 15–20; TEMP 35.7–37.1; O2SAT 96–99; BMI 28.6
[2023-08-07] LABS: D Dimer 0.64 ug/mL (<0.48)
--- NOTE | 2023-08-07 | ECHO_ITS ---
Patient Info Name: Rosalia Dooley Age: 83 years : 1940 Gender: Female Ht: 67 in Wt: 182 lbs BSA: 2.00 m2 HR: 78 bpm BP: 124 / 46 mmHg Heart Rhythm: Sinus Rhythm Technical Quality: Fair Exam Date: 08/07/2023 12:55 PM Exam Location: Echo Lab Exam Room: 332 Patient Status: Inpatient Admit Date: 08/07/2023 Staff Ordering Physician: Omar Colin MD Forming Tube Selector: Erma Eid RDCS Attending Provider: Gordon Faulkner MD Exam Type: CA echo doppler color flow Study Info Indications - ARRHYTHMIA Complete two-dimensional, color flow and Doppler transthoracic echocardiogram is performed. Summary 1. Complete two-dimensional, color flow and Doppler transthoracic echocardiogram is performed. 2. Left ventricular chamber dimension is normal. 3. Left ventricular systolic function is normal, estimated at 50-55%. 4. Left ventricular septal wall motion is abnormal with septal motion related to bundle branch block. 5. The left ventricular diastolic function is grade I diastolic dysfunction. 6. Right ventricular systolic function is normal. 7. Left atrial chamber dimension is moderately enlarged. 8. Right atrial chamber dimension is mildly enlarged. 9. There is mild to moderate mitral valve regurgitation. 10. There is small anterior pericardial effusion. Left Ventricle Left ventricular chamber dimension is normal. Left ventricular systolic function is normal, estimated at 50-55%. There is no increased left ventricular wall thickness. Left ventricular septal wall motion is abnormal with septal motion related to bundle branch block. The left ventricular diastolic function is grade I diastolic dysfunction. Right Ventricle Right ventricular chamber dimension is normal. Right ventricular systolic function is normal. Left Atria Left atrial chamber dimension is moderately enlarged. Right Atria Right atrial chamber dimension is mildly enlarged. Atrial Septum Intact interatrial septum visualized by color flow imaging. Aortic Valve The aortic valve is probable trileaflet. There is no aortic valve stenosis. There is no aortic valve regurgitation. There is mild aortic valve calcification. Pulmonic Valve The pulmonic valve is not well visualized. There is trace pulmonic regurgitation. Mitral Valve There is mild to moderate mitral valve regurgitation. The mitral valve annulus is mildly calcified. Tricuspid Valve There is trace tricuspid valve regurgitation. Pericardium/Pleural There is small anterior pericardial effusion. Inferior Vena Cava Normal inferior vena cava with >50% collapse upon inspiration consistent with normal right atrial pressure, 3 mmHg. Aorta The aortic root size at the sinus of Valsalva is normal. Left Ventricular Outflow Tract Name Value Normal LVOT 2D LVOT Diameter 2.0 cm LVOT Doppler LVOT Peak Gradient 5 mmHg LVOT Mean Gradient 3 mmHg LVOT VTI 24 cm LVOT VTI/AV VTI Ratio 0.6 LVOT Stroke Volume 76 ml LVOT CO 16.1 l/min LVOT CI 8.1 l/min/m2
[2023-08-07] MEDS: FUROSEMIDE INJ 40 MG/4 ML VIAL IV PUSH (00:47)
--- NOTE | 2023-08-07 01:47 | ADMGEN ---
This patient, Rosalia Dooley, was admitted to [facility] Surg Room 332-02. Patient/family oriented to hospital policies and general routines including ID bracelet, bed and alarms, visiting hours, pain management, procedures, bathroom and other care routines, personal items, smoking policy, room service/diet, and visiting hours. Information on how to activate the Rapid Response Team has been discussed. Patient/Family are encouraged to report perceived risks to care and to ask questions if they do not understand what they are told or what they should do.
--- NOTE | 2023-08-07 02:06 | ECG_ITS ---
Measurements Intervals [place] Rate: 66 P: 40 [place]: 191 QRS: -28 QRSD: 142 T: 97 QT: 448 QTc: 471 Interpretive Statements SINUS RHYTHM VENTRICULAR TRIGEMINY LEFT BUNDLE BRANCH BLOCK ABNORMAL ECG COMPARED TO ECG 08/06/2023 19:37:47 NO SIGNIFICANT CHANGES Electronically Signed On 08-07-2023 6:54:51 ESTHETICIAN FACIALIST by Ottoniel Doan D.O.
[2023-08-07] MEDS: amLODIPine BESYLATE 5 MG TABLET PO (02:36)
[2023-08-07 03:28] LABS: Troponin I < 0.012 ng/mL (0.000-0.034)
[2023-08-07 05:51] LABS: Magnesium 1.5 mg/dL (1.6-2.3)
[2023-08-07 05:54] LABS: Troponin I < 0.012 ng/mL (0.000-0.034)
[2023-08-07 06:30] LABS: Anion Gap 8 mmol/L (8-16); Blood Urea Nitrogen 19 mg/dL (7-17); Calcium 8.9 mg/dL (8.4-10.2); Carbon Dioxide 25 mmol/L (22-30); Chloride 107 mmol/L (98-107); Estimated CRCL calculation 42 ml/min; Estimated Glomerular Filt Rate 53; Glucose 109 mg/dL (65-110); Potassium 3.5 mmol/L (3.4-5.0); Sodium 140 mmol/L (137-145)
[2023-08-07] MEDS: MAGNESIUM SULF 2 GM/WATER 50ML 2 GM/50 ML BAG IVPB (08:15)
--- NOTE | 2023-08-07 09:24 | PM.IMHP ---
H&P: HPI History of Present Illness Date/Time: 08/07/23 09:24 Chief Complaint: Cough and SOB Narrative: 83yo female with HTN and CKD here for cough, head congestion and SOB. Patient developed rhinorrhea, cough head congestion about a week ago. She has been taking Mucinex. No antibiotics. No fever or chills. Cough is mostly nonproductive. No odynophagia dysphagia. No chest pain. She does have palpitations on occasion usually once a month on average usually associated with anxiety symptoms. No calf pain but does have a case calf crampy pain. No pleuritic chest pain. No pedal edema. No nausea, vomiting, diarrhea, abdominal pain, dysuria or hematuria. She denies any orthopnea, PND. She has nocturia 2-3 times at night this is chronic. She has chronic hearing loss. No history of heart failure or coronary disease. On the day of admission, she awoke and had a hoarse voice and felt short of breath. Patient was noted to be short of breath worse with movement and was unable to walk approximately 20-30 feet without getting short of breath. She was 90% on room air. EKG showed normal sinus rhythm with frequent PVCs and left bundle branch block. No prior EKGs to compare. Chest x-ray shows subsegmental bibasilar atelectasis versus consolidation and a 6 mm left lower lung pulmonary nodule. She was sent to the emergency room for evaluation. Emergency room, she was 99% on room air. COVID, RSV and influenza nasal swabs were negative. Troponin was negative x4. BNP was 3250. White count was low at 4300 with hemoglobin 11.6 and a platelet count of 97K. No schistocytes. No recent prior CBCs noted. D-dimer was positive at 0.64. Repeat chest x-ray shows improved bibasilar aeration. Repeat EKG showed no significant change. She was treated with a dose of Lasix. She was given 1 dose of Norvasc. She was admitted for further care. Since admission overnight on telemetry, she had an episode of wide complex mostly regular tachycardia with a heart rate in the 140s possibly SVT. Unclear if she was having palpitations with this or her symptoms occurred later. Review of Systems Review of Systems: All systems reviewed & are unremarkable except as noted in HPI and below [facility] Past Medical History Medical History (Updated 08/07/23 @ 09:42 by Omar Colin MD) Cholangiocellular carcinoma Cholecystectomy planned CKD (chronic kidney disease) stage 1, GFR 90 ml/min or greater Elevated alkaline phosphatase level Essential (primary) hypertension Gastro-esophageal reflux disease without esophagitis History of gallbladder cancer IGT (impaired glucose tolerance) Mixed hyperlipidemia Post-menopausal Postmenopausal Surgical History Surgical History H/O: hysterectomy 2021 associated with hernia repair Hx laparoscopic cholecystectomy Hx of resection of liver Family History Family History Mother Family history of osteoarthritis Family history of Alzheimer's disease Family history of malignant neoplasm of breast in first degree relative Father Family history of alcoholism Family history of Alzheimer's disease Social History Social History (Updated 08/07/23 @ 09:43 by Omar Colin MD) Social History: Patient lives alone. She is recently in 2021; her children live close by. She is a lifelong nonsmoker. Denies alcohol or drug use. She was exposed to secondhand smoke. She is DNR. She nominates her daughter to be the individual would make medical decisions for her if she is unable. Smoking status: Never smoker Second hand tobacco smoke exposure: Yes Alcohol intake: never Substance use: never Substance use type: does not use Lack of Transportation: No Lack of Food: Never True Current Housing: I Have Housing Concerned About Future Housing: No Difficulty Paying Gas/Electric Bills: No Difficult
[2023-08-07 09:25] LABS: Troponin I < 0.012 ng/mL (0.000-0.034)
[2023-08-07 10:35] LABS: Basophils Percent Auto 0.4 % (0.2-1.2); Eosinophils Absolute Auto 0.1 K/mm3 (0-0.3); Eosinophils Percent Auto 1.1 % (0-4.4); Hematocrit 36.4 % (37.0-47.0); Hemoglobin 11.9 g/dL (12.0-15.0); Immature Granulocyte Absolute 0.01 K/mm3 (0.00-0.031); Immature Granulocyte Percent A 0.2 % (0-0.5); Immature Platelet Fraction Pct 6.1 % (0.9-11.2); Lymphocytes Absolute Auto 1.01 K/mm3 (0.9-3.2); Lymphocytes Percent Auto 17.8 % (18.3-44.2); Mean Corpuscular HGB Conc 32.7 g/dl (32-36); Mean Corpuscular Hemoglobin 29.4 pg (26-34); Mean Corpuscular Volume 89.9 fl (80-100); Mean Platelet Volume 11.3 fl (7.4-10.4); Monocytes Absolute Auto 0.4 K/mm3 (0.1-0.6); Monocytes Percent Auto 7.1 % (2.6-8.5); Neutrophils Absolute Auto 4.2 K/mm3 (1.3-6.7); Neutrophils Percent Auto 73.4 % (45.5-73.1); Platelet Count Result 95 k/mm3 (150-375); Red Blood Count 4.05 M/mm3 (4.2-5.4); White Blood Count 5.7 K/mm3 (4.5-10.0)
[2023-08-07 11:30] LABS: Burr Cells 1+ (NORMAL); Platelet Estimate Decreased (Adequate); Schistocytes None Seen (NORMAL)
[2023-08-07 11:44] LABS: Folic Acid 15.1 ng/mL (2.76->20)
[2023-08-07] MEDS: OMEGA 3 POLYUNSAT FATTY ACIDS 1 GM CAP PO (12:02)
[2023-08-07] MEDS: SENNA/DOCUSATE SODIUM TABLET 1 TAB PO (12:03)
[2023-08-07] MEDS: METOPROLOL TARTRATE 25 MG TABLET PO (12:03)
[2023-08-07] MEDS: PANTOPRAZOLE 40 MG TABLET 80 MG PO ×2 (12:03→21:03)
--- NOTE | 2023-08-07 13:10 | PM.CNCAR ---
Assessment and Plan Assessment and plan (1) SVT (supraventricular tachycardia): Code(s): I47.10 - Supraventricular tachycardia, unspecified Status: Acute Assessment and Plan: Telemetry reveals several minutes sustained tachyarrhythmia likely atrial flutter with 2:1 AV block, however, cannot exclude alternative SVT. Patient has no prior known documented history of SVT although reports symptoms suggestive recurrence intermittently over the past couple of years. We discussed pathophysiology of atrial flutter and other SVTs, medical management options including observation and recovery from URI which may have increased the likelihood of recurrent SVT and palpitations. Initially, patient was not directly where but after was brought to her attention then felt her heart racing with associated anxiety in which she was aware open abrupt termination with this arrhythmia. She states this is very similar to that she has experienced perhaps every month or so for the past 1-2 years. -CHADS2-Vasc score 4. Systemic anticoagulation warranted if atrial flutter felt to be predominant arrhythmia mechanism. We discussed bleeding versus embolic stroke risk reduction risk versus benefit balance at length. All questions answered to her satisfaction. Patient verbalized understanding and was in agreement with recommended plan of care. -Pt reports no prior h/o stroke. She denies falls, bleeding complications or head trauma or other clear historical contraindication to systemic anticoagulation. -agree with AV ramón blocking agents at this time. Continue metoprolol tartrate 25 mg twice daily for arrhythmia suppression. Caution to avoid symptomatic bradycardia particular with underlying left bundle-branch block indicative of conduction system disease. -I discussed at length aspirin versus systemic anticoagulation. For now, if platelet count is stable may continue aspirin but if any further decline I would hold. However, if she has recurrence of tachyarrhythmia and or once we observe stabilization and or improvement in her platelet count initiation of systemic anticoagulation warranted. We also discussed outpatient biofuels operations manager for 30 days post discharge if no significant recurrence while hospitalized. -continue telemetry observation. -2D echocardiogram to assess LV size/function, valve pathology, chamber size, and pulmonary pressures. Recommendation to follow after review. -Patient does not appear to be in decompensated heart failure clinically. Agree with holding off on diuresis. Elevated BNP most likely 2nd H, tachyarrhythmia, underlying renal insufficiency in setting of acute illness as opposed to decompensated heart failure. -patient was mildly hypomagnesemic presentation which has been supplemented. Continue to monitor. Potassium stable, TSH normal at 2.870. (2) Left bundle branch block: Code(s): I44.7 - Left bundle-branch block, unspecified Status: Acute Assessment and Plan: Duration and etiology unknown. Prior reference to ECG from 2019 and 2015 do not indicate LBBB morphology. Patient denies anginal symptoms, ruled out for myocardial infarction with negative serial troponins this admission. Review 2D echocardiogram to assess LV function, wall motion abnormalities, chamber size, valve pathology as above. Recommendation to follow. Caution with AV ramón blocking agents, for, given symptomatic intermittent tachyarrhythmia reasonable to initiate low-dose AV ramón blocking agent observe tolerance. Given the presence of LBBB important to confirm LV function. Depending upon echo results ischemic evaluation as an outpatient as appropriate may be considered yet she is not endorsing clear anginal symptoms prior to admission. 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
[2023-08-08] VITALS (11 sets, daily range): BP systolic 107–129; BP diastolic 55–58; PULSE 54–70; RESP 16; TEMP 36.1–36.7; O2SAT 94–96
[2023-08-08 05:53] LABS: Basophils Percent Auto 0.7 % (0.2-1.2); Eosinophils Absolute Auto 0.1 K/mm3 (0-0.3); Eosinophils Percent Auto 1.9 % (0-4.4); Hematocrit 34.1 % (37.0-47.0); Hemoglobin 11.1 g/dL (12.0-15.0); Immature Granulocyte Absolute 0.02 K/mm3 (0.00-0.031); Immature Granulocyte Percent A 0.5 % (0-0.5); Immature Platelet Fraction Pct 6.7 % (0.9-11.2); Lymphocytes Percent Auto 21.4 % (18.3-44.2); Mean Corpuscular HGB Conc 32.6 g/dl (32-36); Mean Corpuscular Hemoglobin 29.4 pg (26-34); Mean Corpuscular Volume 90.2 fl (80-100); Monocytes Absolute Auto 0.4 K/mm3 (0.1-0.6); Monocytes Percent Auto 8.6 % (2.6-8.5); Neutrophils Absolute Auto 2.8 K/mm3 (1.3-6.7); Neutrophils Percent Auto 66.9 % (45.5-73.1); Platelet Count Result 92 k/mm3 (150-375); Red Blood Count 3.78 M/mm3 (4.2-5.4); Red Cell Distribution Width 13.8 % (11.5-14.5); White Blood Count 4.2 K/mm3 (4.5-10.0)
[2023-08-08 06:09] LABS: Alanine Aminotransferase 18 U/L (6-35); Albumin Level 3.4 g/dL (3.5-5.1); Alkaline Phosphatase 133 U/L (38-126); Anion Gap 7 mmol/L (8-16); Aspartate Amino Transferase 24 U/L (14-36); Bilirubin,Total 1.4 mg/dL (0.2-1.3); Blood Urea Nitrogen 23 mg/dL (7-17); Calcium 8.7 mg/dL (8.4-10.2); Carbon Dioxide 26 mmol/L (22-30); Chloride 104 mmol/L (98-107); Estimated CRCL calculation 30 ml/min; Estimated Glomerular Filt Rate 36; Glucose 104 mg/dL (65-110); Magnesium 1.9 mg/dL (1.6-2.3); Potassium 3.6 mmol/L (3.4-5.0); Sodium 137 mmol/L (137-145)
[2023-08-08] MEDS: CYANOCOBALAMIN INJ 1,000 MCG/ML VIAL 1000 MCG IM (09:24)
[2023-08-08] MEDS: MAGNESIUM SULF 1 GM/D5W 100 ML 1 GM/100 ML BAG IVPB (09:29)
[2023-08-08] MEDS: CYANOCOBALAMIN 1,000 MCG TABLET 1000 MCG PO (09:29)
[2023-08-08] MEDS: POTASSIUM CHLORIDE 20 MEQ ER TABLET PO (09:29)
[2023-08-08] MEDS: OMEGA 3 POLYUNSAT FATTY ACIDS 1 GM CAP PO (09:29)
[2023-08-08] MEDS: PANTOPRAZOLE 40 MG TABLET 80 MG PO ×2 (09:30→17:11)
[2023-08-08] MEDS: METOPROLOL TARTRATE 25 MG TABLET PO ×2 (09:30→20:44)
[2023-08-08] MEDS: SENNA/DOCUSATE SODIUM TABLET 1 TAB PO (09:34)
--- NOTE | 2023-08-08 18:00 | PM.IMPN ---
Progress Note: A&P Assessment and Plan (1) Acute dyspnea: Code(s): R06.00 - Dyspnea, unspecified Status: Acute (2) Tachyarrhythmia: Code(s): R00.0 - Tachycardia, unspecified Status: Acute (3) New onset of congestive heart failure: Code(s): I50.9 - Heart failure, unspecified Status: Acute (4) Pancytopenia: Code(s): D61.818 - Other pancytopenia Status: Acute (5) Cough: Code(s): R05 - Cough Status: Acute (6) CKD (chronic kidney disease) stage 1, GFR 90 ml/min or greater: Code(s): N18.1 - Chronic kidney disease, stage 1 Status: Acute (7) Hypertension: Qualifiers: Hypertension type: primary hypertension Qualified Code(s): I10 - Essential (primary) hypertension Code(s): I10 - Essential (primary) hypertension Status: Acute Plan Patient presents with viral symptoms with cough and head congestion that progressed to laryngitis. Viral etiology could explain the pancytopenia. Chest x-ray reviewed additional findings probably more likely related to atelectasis CHF. BNP noted but could be related to dysrhythmia. Suspect she has SVT but there is some mild irregularity so would consider also AFib. Nonsustained V-tach is consideration given the wide complex but felt less likely. Will check TSH and echocardiogram. Cardiology consult. She does have a positive D-dimer. She may have been less active given her recent illness resulting in VTE. PE could cause the tachyarrhythmia. Will check CTA of the chest and lower extremity Dopplers. She is on room air and her lungs are clear. No evidence of fluid overload so will hold on repeating the Lasix. Will start her on metoprolol. Continue monitor on telemetry will check a B12 level and repeat CBC. Will use SCDs for DVT prophylaxis. Will check sputum since her cough is now more productive. Further recommendation as course dictates. 08/08: She feels well. Cr up to 1.4 possibly related to Lasix given in ED and/or contrast from CTA. CTA chest negative for PE and no evidence of PNA. Suspect she has a viral illness resulting is some of her symptoms. She does have a pancreatic mass but she is aware of this and no change from 2021. Doppler negative for DVT. Repeat BMP. May need IV fluids if Cr climbs further. Pancytopenia persists but no change. Continue ASA. No further events noted by tele. Continue metoprolol. Continue tele. Replace potassium and Mag. B12 low end of normal so bharath replace. Subjective Date/time seen: 08/08/23 18:00 Interval history: 83yo female with HTN and CKD here for cough, head congestion and SOB.?? Patietn feels well. No complaints. No CP or SOB. Exam Narrative: AF 97.2 107/58 57 16 96% ra Gen - wNARD Chest - CTA bilaterally CV - RRR S1/S2 with occasional extra beat. Tele showing frequent PVCs. Abd - soft, NT/ND. +BS Ext - no pedal edema Neuro - nonfocal Psych - normal mood and affect. Skin - warm and dry. Objective Data Vital Signs Vital Signs: Vital Signs - 24 hr 08/07/23 20:00 08/07/23 21:23 08/07/23 22:00 Temperature Pulse Rate 60 Respiratory Rate Blood Pressure 102/56 L Pulse Oximetry 96 Oxygen Delivery Room Air 08/07/23 23:00 08/07/23 20:00 08/08/23 00:00 Temperature 96.3 F L Pulse Rate 63 54 L 70 Respiratory Rate 18 Blood Pressure 91/67 L Pulse Oximetry 98 Oxygen Delivery 08/08/23 04:00 08/08/23 06:00 08/08/23 09:30 Temperature 96.9 F L Pulse Rate 54 L 58 L 64 Respiratory Rate 16 Blood Pressure 120/56 L Pulse Oximetry 95 Oxygen Delivery 08/08/23 09:30 08/08/23 08:00 08/08/23 12:00 Temperature Pulse Rate 65 54 L Respiratory Rate Blood Pressure Pulse Oximetry Oxygen Delivery Room Air 08/08/23 14:00 Temperature 97.2 F L Pulse Rate 57 L Respiratory Rate 16 Blood Pressure 107/58 L Pulse Oximetry 96 Oxygen Delivery Intake/Output Intake/Output: In
[2023-08-08 19:24] LABS: Anion Gap 10 mmol/L (8-16); Blood Urea Nitrogen 30 mg/dL (7-17); Calcium 8.8 mg/dL (8.4-10.2); Carbon Dioxide 25 mmol/L (22-30); Chloride 101 mmol/L (98-107); Estimated CRCL calculation 28 ml/min; Estimated Glomerular Filt Rate 33; Glucose 116 mg/dL (65-110); Potassium 3.9 mmol/L (3.4-5.0); Sodium 136 mmol/L (137-145)
[2023-08-08] MEDS: SODIUM CHLORIDE 0.9% IV 1,000 ML 100 ML IV CONT (20:43)
[2023-08-08] MEDS: ASPIRIN 81 MG ENTERIC TABLET PO (20:44)
[2023-08-09] VITALS (7 sets, daily range): BP systolic 127–128; BP diastolic 47–59; PULSE 51–59; RESP 14; TEMP 36.8; O2SAT 96
[2023-08-09 06:23] LABS: Basophils Percent Auto 0.5 % (0.2-1.2); Eosinophils Absolute Auto 0.1 K/mm3 (0-0.3); Eosinophils Percent Auto 1.7 % (0-4.4); Hematocrit 34.5 % (37.0-47.0); Immature Granulocyte Absolute 0.01 K/mm3 (0.00-0.031); Immature Granulocyte Percent A 0.2 % (0-0.5); Immature Platelet Fraction Pct 7.4 % (0.9-11.2); Lymphocytes Absolute Auto 1.09 K/mm3 (0.9-3.2); Lymphocytes Percent Auto 25.9 % (18.3-44.2); Mean Corpuscular HGB Conc 31.9 g/dl (32-36); Mean Corpuscular Hemoglobin 29.3 pg (26-34); Mean Corpuscular Volume 91.8 fl (80-100); Mean Platelet Volume 11.1 fl (7.4-10.4); Monocytes Absolute Auto 0.3 K/mm3 (0.1-0.6); Monocytes Percent Auto 7.8 % (2.6-8.5); Neutrophils Absolute Auto 2.7 K/mm3 (1.3-6.7); Neutrophils Percent Auto 63.9 % (45.5-73.1); Platelet Count Result 107 k/mm3 (150-375); Red Blood Count 3.76 M/mm3 (4.2-5.4); Red Cell Distribution Width 13.8 % (11.5-14.5); White Blood Count 4.2 K/mm3 (4.5-10.0)
[2023-08-09 06:36] LABS: Anion Gap 7 mmol/L (8-16); Blood Urea Nitrogen 29 mg/dL (7-17); Calcium 8.7 mg/dL (8.4-10.2); Carbon Dioxide 28 mmol/L (22-30); Chloride 104 mmol/L (98-107); Estimated CRCL calculation 33 ml/min; Estimated Glomerular Filt Rate 39; Glucose 99 mg/dL (65-110); Potassium 3.9 mmol/L (3.4-5.0); Sodium 139 mmol/L (137-145)
[2023-08-09] MEDS: PANTOPRAZOLE 40 MG TABLET 80 MG PO (08:17)
[2023-08-09] MEDS: OMEGA 3 POLYUNSAT FATTY ACIDS 1 GM CAP PO (08:19)
[2023-08-09] MEDS: SENNA/DOCUSATE SODIUM TABLET 1 TAB PO (08:20)
[2023-08-09] MEDS: METOPROLOL TARTRATE 25 MG TABLET PO (08:20)
[2023-08-09] MEDS: CYANOCOBALAMIN 1,000 MCG TABLET 1000 MCG PO (08:20)
--- NOTE | 2023-08-09 10:09 | PM.PNCARD ---
Progress Note: A&P Assessment and Plan (1) SVT (supraventricular tachycardia): Code(s): I47.10 - Supraventricular tachycardia, unspecified Status: Acute Assessment and Plan: Telemetry reveals several minutes sustained tachyarrhythmia likely atrial flutter with 2:1 AV block, however, cannot exclude alternative SVT. 1 brief episode of tachycardia noted on telemetry this morning just before 0500, nonsustained. -CHADS2-Vasc score 4. Systemic anticoagulation warranted if atrial flutter felt to be predominant arrhythmia mechanism. Will discharge with 30 day groundwater monitoring technician to further observe tachyarrhythmia and determine need for anticoagulation. -agree with AV ramón blocking agents at this time. Continue metoprolol tartrate 25 mg twice daily for arrhythmia suppression. Caution to avoid symptomatic bradycardia particular with underlying left bundle-branch block indicative of conduction system disease. -Repeat CBC in 2 weeks to monitor platelet count -Continue 81mg ASA for now - OK for discharge from cardiac standpoint. (2) Left bundle branch block: Code(s): I44.7 - Left bundle-branch block, unspecified Status: Acute Assessment and Plan: Duration and etiology unknown. Prior reference to ECG from 2019 and 2015 do not indicate LBBB morphology. Patient denies anginal symptoms, ruled out for myocardial infarction with negative serial troponins this admission. Echo showed normal LFEV, no RWMA, mild - mod MR, small pericarial effusion. Stress testing can be discussed as an outpatient since she denies any anginal symptoms. 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 Thus far on telemetry, no clinically significant sustained or nonsustained ventricular tachycardia on telemetry. Continue beta beatrice for suppression. Outpatient groundwater monitoring technician ordered. (4) Hypertension: Qualifiers: Hypertension type: primary hypertension Qualified Code(s): I10 - Essential (primary) hypertension Code(s): I10 - Essential (primary) hypertension Status: Acute Assessment and Plan: At goal (5) Viral URI: Code(s): J06.9 - Acute upper respiratory infection, unspecified Status: Acute (6) Pancytopenia: Code(s): D61.818 - Other pancytopenia Status: Acute Assessment and Plan: Stable, improving. Plt 107 today. CBC in 2 weeks as outpatient (7) Mixed hyperlipidemia: Code(s): E78.2 - Mixed hyperlipidemia Status: Acute Assessment and Plan: On 04/25/2023 LDL 93, reasonably controlled. Alternative to niacin may be considered as an outpatient. Subjective Date/time seen: 08/09/23 10:09 Interval history: Cardiology follow up for SVT Feeling well this morning and has no complaints. Denies palpitations, chest pain, shortness of breath. Eager to go home. Review of Systems Review of Systems: Remainder of the review of systems is otherwise negative aside from that noted in the HPI. All systems reviewed & are unremarkable except as noted in HPI and below Constitutional: Constitutional: Reports as per HPI and Reports no additional constitutional complaints Eyes: Eyes: Reports as per HPI and Reports no additional eye complaints ENT: Reports system reviewed and no additional complaints, except as documented and Reports as per HPI Cardiovascular: Cardiovascular: Reports as per HPI and Reports no additional cardiovascular complaints Respiratory: Respiratory: Reports as per HPI and Reports no additional respiratory complaints Gastrointestinal: Gastrointestinal: Reports as per HPI and Reports no additional gastrointestinal complaints Genitourinary: Genitourinary: Reports as per HPI Musculoskeletal: Musculoskeletal: Reports no additional musculoskele
--- NOTE | 2023-08-09 11:22 | PM.DS ---
DS: Admitting Diagnosis Discharge Date 08/09/23 Admitting Diagnosis Cough and SOB DS: Discharge Diagnosis Discharge Diagnosis (1) Acute dyspnea: Code(s): R06.00 - Dyspnea, unspecified Status: Acute (2) Tachyarrhythmia: Code(s): R00.0 - Tachycardia, unspecified Status: Acute (3) Pancytopenia: Code(s): D61.818 - Other pancytopenia Status: Acute (4) Cough: Code(s): R05 - Cough Status: Acute (5) CKD (chronic kidney disease) stage 1, GFR 90 ml/min or greater: Code(s): N18.1 - Chronic kidney disease, stage 1 Status: Acute (6) Hypertension: Qualifiers: Hypertension type: primary hypertension Qualified Code(s): I10 - Essential (primary) hypertension Code(s): I10 - Essential (primary) hypertension Status: Acute (7) Viral URI: Code(s): J06.9 - Acute upper respiratory infection, unspecified Status: Acute (8) Frequent PVCs: Code(s): I49.3 - Ventricular premature depolarization Status: Acute (9) Left bundle branch block: Code(s): I44.7 - Left bundle-branch block, unspecified Status: Acute DS: Summary Hospital Course Reason for hospitalization: 83yo female with HTN and CKD here for cough, head congestion and SOB.??Please see H&P for details. Hospital Course: In the Emergency room, she was 99% on room air.? COVID, RSV and influenza nasal swabs were negative.? Troponin was negative x4.? BNP was 3250.? White count was low at 4300 with hemoglobin 11.6 and a platelet count of 97K.? No schistocytes.? No recent prior CBCs noted.? D-dimer was positive at 0.64.? Repeat chest x-ray shows improved bibasilar aeration from earlier the same day.? Repeat EKG showed no significant change.? She was treated with a dose of Lasix.? She was given her home Norvasc.? She was admitted on tele.? On telemetry, she had two episode of wide complex mostly regular tachycardia with a heart rate in the 140s possibly SVT vs AFlutter. Cardiology consulted. Echo showing EF 50-55% with septal wall motion abnormalities related to the BBB, Grade I diastolic dysfunction and mild-moderate MR. Norvasc stopped and metoprolol added. Long discussion about pros/cons of anticoagulation. Plan is to monitor platelet count, place on outpatient monitoring and follow up in Cardiology clinic. TSH and Folate were normal. B12 low end of normal so replaced. CTA chest negative for PE and no evidence of PNA. Doppler negative for LE DVT. She does have a pancreatic mass but she is aware of this and no change from 2020. Cr climbed to 1.5 felt related to the Lasix from ED and/or contrast. With fluids, Cr trended down. She had mild pancytopenia. WBC down to 4200, Hgb 11 range and Platelet count 90K range but did improve to 107K at discharge. Suspect she has a viral illness resulting is some of her symptoms and lab findings. We continued her aspirin. She is up walking in the room. She overall did well and was able to be discharged home on 08/09/23. Acute CHF ruled out. Status at Discharge Cognitive/behavioral status at discharge: stable Time Spent with Patient Time attestation: Total time spent providing and/or coordinating discharge services: 35 minutes. Time spent: Greater than 30 minutes Exam Narrative: AF 98.2 127/47 55 14 96% ra Gen - NARD Chest - CTA bilaterally CV - RRR S1/S2 with occasional extra beat. Tele showing frequent PVCs and one episode of brief run of SVT vs AFlutter. HR low to 55 at times Abd - soft, NT/ND. +BS Ext - no pedal edema Neuro - nonfocal Psych - normal mood and affect. Skin - warm and dry. DS: Data Data Completed and Pending Labs on day of discharge: Labs from last 24 hours 08/09/23 08/08/23 05:56 18:53 WBC 4.2 L RBC 3.76 L Hgb 11.0 L Hct 34.5 L MCV 91.8 MCH 29.3 MCHC 31.9 L RDW 13.8 Plt Count 107 L MPV 11.1 H Immature Gran % (Auto) 0.2 Neut % (Auto) 63.9 Lymph
--- NOTE | 2023-08-09 13:58 | PC.NURSE ---
Patient off of unit to [address] to get holter monitor on.
--- NOTE | 2023-08-14 06:46 | PC.NURSE ---
Faxed sputum culture results to PCP- Mikhail Garner MD.
== END 2023-08-09 14:43 | disposition home or self-care (01) | DRG 292 ==
LOC: ANHED 08-07 00:35 → ANH3MEDSUR 08-07 01:27
PROVIDERS: Admitting Provider Internal Medicine; Emergency Provider Emergency Medicine; PCP Family Medicine; Visit Provider Internal Medicine
DX: I13.0 Hypertensive heart and chronic kidney disease with heart failure and stage 1 through stage 4 chronic kidney disease, or unspecified chronic kidney disease (principal); D61.818 Other pancytopenia; I47.10 Supraventricular tachycardia, unspecified; N17.9 Acute kidney failure, unspecified; J06.9 Acute upper respiratory infection, unspecified; E78.2 Mixed hyperlipidemia; H91.90 Unspecified hearing loss, unspecified ear; I44.7 Left bundle-branch block, unspecified; I49.3 Ventricular premature depolarization; I50.9 Heart failure, unspecified; K21.9 Gastro-esophageal reflux disease without esophagitis; K86.9 Disease of pancreas, unspecified; N18.1 Chronic kidney disease, stage 1; Z66 Do not resuscitate; Z90.710 Acquired absence of both cervix and uterus; Z90.49 Acquired absence of other specified parts of digestive tract; Z20.822 Contact with and (suspected) exposure to COVID-19; Z79.82 Long term (current) use of aspirin; Z85.09 Personal history of malignant neoplasm of other digestive organs; Z90.89 Acquired absence of other organs
CPT/HCPCS: 36415; 71046; 71275; 80048; 80053; 82607; 82746; 83735; 83880; 84443; 84484; 85025; 85055; 85380; 87070; 87077; 87186; 87205; 87637; 93005; 93306; 93970; 96374; 99285; A9270; G0378; J1940; J3420; J3475; J7030; Q9967

== ENCOUNTER 2024-01-09 11:46 | Outpatient (CLI) | payer MEDICARE, SELFPAY ==
--- NOTE | ~2024-01-09 | XR_ITS ---
Right Knee Technique: AP, lateral, and sunrise views were obtained. Clinical History: Swelling Findings: No fracture or dislocation is seen. Osseous alignment is anatomic. Joint spaces are preserv ed without degenerative or erosive change. Soft tissues are unremarkable. No joint effusion is seen. Impression: Unremarkable right knee radiographs. Reviewed, dictated and finalized at location . Impression: Unremarkable right knee radiographs.
== END 2024-01-09 11:47 | disposition home or self-care (01) ==
LOC: ANHIMG 11:48
PROVIDERS: PCP Nurse Practitioner; Visit Provider Nurse Practitioner
DX: M25.561 Pain in right knee (principal)
CPT/HCPCS: 73562

== ENCOUNTER 2024-03-23 10:53 | Emergency (ER) | payer MEDICARE, SELFPAY ==
--- NOTE | ~2024-03-23 | XR_ITS ---
EXAMINATION: XR chest 2V DATE: 03/23/2024 13:15 INDICATION: Shortness of breath. Bilateral leg swelling. TECHNIQUE: Frontal and lateral views of the chest were obtained. COMPARISON: Chest 2 views 08/06/2023, chest CT 08/07/2023 FINDINGS: There is a small right pleural effusion. There are airspace opacities at right lung base. N o pneumothorax. Cardiomegaly is noted. IMPRESSION: 1. Small right pleural effusion. 2. Airspace opacities at right lung base, likely atelectasis. 3. Cardiomegaly. Reviewed, dictated and finalized at location A.
--- NOTE | ~2024-03-23 | US_ITS ---
EXAMINATION: US venous doppler [facility] DATE: 03/23/2024 13:51 INDICATION: Lower limb edema. TECHNIQUE: Grayscale ultrasound images without and with compression and Doppler ultrasound images of the bilateral lower extremity veins were obtained. COMPARISON: Ultrasound 08/07/2023 FINDINGS: The visualized portions of right common femoral vein, profunda (deep) femoral vein, femoral vein, pop liteal vein, peroneal veins, posterior tibial veins, and greater saphenous vein outflow are patent. T here is a small right Mullen's cyst. The visualized portions of left common femoral vein, profunda femoral vein, femoral vein, popliteal v ein, peroneal veins, posterior tibial veins, and greater saphenous vein outflow are patent. There is a small left Mullen's cyst. IMPRESSION: 1. No deep venous thrombosis. 2. Small bilateral Mullen's cysts. Reviewed, dictated and finalized at location A.
[2024-03-23 10:55] VITALS: BP 151/47; PULSE 68; RESP 20; TEMP 36.8; O2SAT 98
--- NOTE | 2024-03-23 12:54 | ED.SOB ---
HPI - SOB/Dyspnea General Chief Complaint: Shortness of Breath/Dyspnea <RANDY Corbin Last Filed: 03/23/24 13:03> Stated Complaint: SOB, swollen ext. <RANDY Corbin Last Filed: 03/23/24 13:03> Time Seen by Provider: 03/23/24 12:54 <RANDY Corbin Last Filed: 03/23/24 13:03> Focused HPI: Patient is an 83 y/o female who presents to the ED with c/o SOB and BLE swelling. Patient reports having increased SOB, worse with exertion, for the past 1 month. She c/o increased swelling throughout her lower extremities, worse on L. States she has pain throughout her BLE with walking. Denies CP. Denies cough, fevers. Denies hx of CHF. Not currently on diuretics. Patient is currently on Xarelto. She is unsure why. GENERAL: Elderly, and in no acute distress. HEAD: Normocephalic, atraumatic. CHEST: Clear to auscultation. ?No respiratory distress. No significant focal lung sounds. HEART: Regular rate and rhythm.? MSK: 1+ pitting edema in BLE, slightly increased on L lower leg compared to R. NEURO: ?Alert and oriented x3. Patient screened in triage and initial orders placed.? ?Additional care and disposition to be based upon?diagnostic testing and treatment. <Hannah Farmer PA-C - Last Filed: 03/23/24 13:03> Source: patient <RANDY Corbin Last Filed: 03/23/24 13:03> Mode of arrival: ambulatory <RANDY Corbin Last Filed: 03/23/24 13:03> Limitations: no limitations <RANDY Corbin Last Filed: 03/23/24 13:03> History of Present Illness HPI Narrative: 83-year-old female presents to the emergency department for evaluation of lower extremity edema. Patient states she does have longstanding issues well left lower extremity edema but yesterday began having right lower extremity edema. Patient states she previously had been on a water pill but was stopped a few years ago. Patient states she does have pain throughout her legs with ambulation and this has been going on for greater than 6 months but has worsened over the course of the last week. <Pipo Torre MD - Last Filed: 03/23/24 19:09> Related Data Home Medications: Home Medications Medication Instructions Recorded Confirmed rivaroxaban 20 mg tablet (Xarelto) 20 mg PO QPM 11/05/23 01/28/24 cholecalciferol (vitamin D3) 25 25 mcg PO DAILY 01/28/24 01/28/24 mcg (1,000 unit) capsule <Hannah Farmer PA-C - Last Filed: 03/23/24 13:03> Allergies/Adverse Reactions: Allergies Allergy/AdvReac Type Severity Reaction Status Date / Time levofloxacin AdvReac Intermediate shakes Verified 01/28/24 12:49 <Hannah Farmer PA-C - Last Filed: 03/23/24 13:03> Review of Systems Review of Systems: All systems reviewed & are unremarkable except as noted in HPI and below <Pipo Torre MD - Last Filed: 03/23/24 19:09> PMF Past Medical History Medical History: Medical History (Updated 03/23/24 @ 15:12 by Pipo Torre MD) Cholangiocellular carcinoma CKD (chronic kidney disease) stage 1, GFR 90 ml/min or greater Elevated alkaline phosphatase level Essential (primary) hypertension Gastro-esophageal reflux disease without esophagitis History of gallbladder cancer IGT (impaired glucose tolerance) Mixed hyperlipidemia Postmenopausal <Hannah Farmer PA-C - Last Filed: 03/23/24 13:03> Surgical History Surgical History: Surgical History (Updated 01/28/24 @ 12:54 by Neena Eid CMA) H/O: hysterectomy 2021 associated with hernia repair History of hernia repair Hx laparoscopic cholecystectomy Hx of resection of liver <Hannah Farmer PA-C - Last Filed: 03/23/24 13:03> Family History Family History: Family History Mother Family history of osteoarthritis Family history of Alzheimer's disease Family history of malignant neoplasm of breas
--- NOTE | 2024-03-23 12:55 | ECG_ITS ---
Test Date: 2024-03-23 13:05:06 Measurements Intervals [place] Rate: 60 P: 60 WV: 182 QRS: 153 QRSD: 146 T: 112 QT: 421 QTc: 421 Interpretive Statements SINUS RHYTHM WITH FREQUENT ECTOPIC PREMATURE COMPLEXES INDETERMINATE AXIS LEFT BUNDLE BRANCH BLOCK ABNORMAL ECG No previous ECG available for comparison Electronically Signed On 03-23-2024 16:00:37 CDT by Samuel Harding M.D.
[2024-03-23 13:16] LABS: Basophils Percent Auto 0.5 % (0.2-1.2); Eosinophils Percent Auto 1.1 % (0-4.4); Hemoglobin 9.5 g/dL (12.0-15.0); Immature Granulocyte Absolute 0.02 K/mm3 (0.00-0.031); Immature Granulocyte Percent A 0.5 % (0-0.5); Lymphocytes Absolute Auto 0.94 K/mm3 (0.9-3.2); Lymphocytes Percent Auto 25.1 % (18.3-44.2); Mean Corpuscular HGB Conc 31.7 g/dl (32-36); Mean Corpuscular Hemoglobin 27.9 pg (26-34); Mean Platelet Volume 10.1 fl (7.4-10.4); Monocytes Absolute Auto 0.3 K/mm3 (0.1-0.6); Monocytes Percent Auto 8.3 % (2.6-8.5); Neutrophils Absolute Auto 2.4 K/mm3 (1.3-6.7); Neutrophils Percent Auto 64.5 % (45.5-73.1); Platelet Count Result 122 k/mm3 (150-375); Red Blood Count 3.41 M/mm3 (4.2-5.4); Red Cell Distribution Width 14.7 % (11.5-14.5); White Blood Count 3.7 K/mm3 (4.5-10.0)
[2024-03-23 13:28] LABS: Partial Thromboplastin Time 48.8 Seconds (22.3-36.8)
[2024-03-23 13:29] LABS: Alanine Aminotransferase 29 U/L (6-35); Albumin Level 4.3 g/dL (3.5-5.1); Alkaline Phosphatase 145 U/L (38-126); Anion Gap 9 mmol/L (4-12); Aspartate Amino Transferase 36 U/L (14-36); Bilirubin,Total 0.8 mg/dL (0.2-1.3); Blood Urea Nitrogen 34 mg/dL (7-17); Calcium 9.2 mg/dL (8.4-10.2); Carbon Dioxide 22 mmol/L (22-30); Chloride 111 mmol/L (98-107); Estimated CRCL calculation 30 ml/min; Estimated Glomerular Filt Rate 36; Glucose 102 mg/dL (65-110); Potassium 4.3 mmol/L (3.4-5.0); Sodium 142 mmol/L (137-145)
[2024-03-23 13:39] LABS: INR 1.7; Prothrombin Time 20.2 Seconds (11.1-14.7)
[2024-03-23 14:01] LABS: Troponin I < 0.012 ng/mL (0.000-0.034)
[2024-03-23 14:16] VITALS: PULSE 58
[2024-03-23 14:16] LABS: NT Pro B Type Natriuretic Pept 6640 pg/mL (19.9-100)
[2024-03-23 14:31] LABS: Creatine Kinase 83 U/L (30-135)
[2024-03-23] MEDS: FUROSEMIDE INJ 40 MG/4 ML VIAL IV PUSH (14:43)
[2024-03-23 15:22] VITALS: BP 142/88; PULSE 84; RESP 16; O2SAT 98
== END 2024-03-23 15:30 | disposition home or self-care (01) ==
PROVIDERS: Physician Assistant; Emergency Provider Emergency Medicine; PCP Nurse Practitioner
DX: R22.43 Localized swelling, mass and lump, lower limb, bilateral (principal); I12.9 Hypertensive chronic kidney disease with stage 1 through stage 4 chronic kidney disease, or unspecified chronic kidney disease; N18.1 Chronic kidney disease, stage 1; E78.2 Mixed hyperlipidemia
CPT/HCPCS: 36415; 71046; 80053; 82550; 83880; 84484; 85025; 85610; 85730; 93005; 93970; 96374; 99284; J1940

== ENCOUNTER 2024-04-06 12:09 | Outpatient (CLI) | payer MEDICARE, SELFPAY ==
--- NOTE | ~2024-04-06 | MM_ITS ---
EXAMINATION: MM screening vickie BI w genesis HISTORY: Screening TECHNIQUE: Craniocaudal and mediolateral oblique 3-D tomosynthesis images were obtained and synthetic 2-D images were generated. CAD analysis was submitted and interpreted. COMPARISON: Comparison to multiple prior studies sequentially, with oldest reviewed study dated 02/20. BREAST PARENCHYMAL COMPOSITION: Not dense: There are scattered areas of fibroglandular density. FINDINGS: There is no evidence of suspicious mass, calcification, or architectural distortion to sugg est malignancy in either breast. There has been no suspicious interval change. IMPRESSION: 1. No mammographic evidence of malignancy. 2. Recommend routine screening mammography in one year. BI-RADS Category 1: Negative Reviewed, dictated and finalized at location B.
== END 2024-04-06 12:10 ==
LOC: MICIMG 12:11
PROVIDERS: PCP Nurse Practitioner; Visit Provider Nurse Practitioner
DX: Z12.31 Encounter for screening mammogram for malignant neoplasm of breast (principal)
CPT/HCPCS: 77063; 77067

== ENCOUNTER 2024-10-29 12:22 | Emergency (ER) | payer MEDICARE, SELFPAY ==
--- NOTE | ~2024-10-29 | CT_ITS ---
History: Fall PROCEDURE: CT head without contrast. COMPARISON: None TECHNIQUE: Axial imaging of the head performed from the skull base to the vertex without IV contrast. Sagittal a nd coronal reformations obtained. DLP: 605 mGy-cm FINDINGS: The ventricles are normal in size, shape and position. There is no mass, mass effect or midline shift. There is no abnormal extra-axial fluid collection or intracranial hemorrhage. Opacification of the right frontal, right ethmoid and right maxillary sinus are identified, likely re presenting blood products from acute fracture, better evaluated on a dedicated facial bone CT. The mastoid air cells are well aerated. Large right periorbital soft tissue hematoma. No acute displaced fractures within the overlying cranium. Impression: No acute intracranial hemorrhage or suspicious mass effect. Opacification of the right frontal, right ethmoid and right maxillary sinuses likely representing blo od products from acute fracture, better evaluated on dedicated facial bone CT. Reviewed, dictated and finalized at location A. IT DRESSER Impression: No acute intracranial hemorrhage or suspicious mass effect. Opacification of the right frontal, right ethmoid and right maxillary sinuses l ikely representing blood products from acute fracture, better evaluated on dedi cated facial bone CT.
--- NOTE | ~2024-10-29 | CT_ITS ---
EXAMINATION: CT facial & cervical spine wo DATE: 10/29/2024 12:53 INDICATION: Head injury. TECHNIQUE: Computed tomography (CT) of the maxillofacial region and cervical spine was performed with out intravenous contrast. Automated exposure control and iterative reconstruction technique were empl oyed. The dose-length product was 321.45 mGy-cm. COMPARISON: None FINDINGS: MAXILLOFACIAL CT: There is right periorbital soft tissue swelling. There are likely changes of ocular lens replacement surgeries. There is near complete opacification of the right frontal and right anterior ethmoid sinus es and complete opacification of right maxillary sinus with thickening and sclerosis of sinus mackey, consistent with chronic sinusitis. There is mild mucosal thickening in other paranasal sinuses. There is rightward deviation of the nasal septum. CERVICAL SPINE CT: There is 9 degrees levocurvature of cervical spine. Vertebral body heights are normal. There is mildl y decreased disc height at C3-C4 and C4-C5 and severely decreased disc height at C5-C6 and C6-C7. The following disc levels are specifically discussed: C2-C3: There is severe right uncovertebral joint osteoarthritis. There is mild right and severe left facet joint osteoarthritis. There is mild left neural foraminal stenosis. There is no central canal s tenosis. C3-C4: There is severe bilateral uncovertebral joint osteoarthritis. There is severe right and mild l eft facet joint osteoarthritis. There is mild right neural foraminal stenosis. There is mild central canal stenosis. C4-C5: There is mild bilateral uncovertebral joint osteoarthritis. There is severe bilateral facet dhiraj int osteoarthritis. There is mild right neural foraminal stenosis. There is no central canal stenosis . C5-C6: There is severe bilateral uncovertebral joint osteoarthritis. There is mild right and severe l eft facet joint osteoarthritis. There is mild bilateral neural foraminal stenosis. There is mild cent ral canal stenosis. C6-C7: There is severe bilateral uncovertebral joint osteoarthritis. There is severe right and modera te left facet joint osteoarthritis. There is mild bilateral neural foraminal stenosis. There is mild central canal stenosis. C7-T1: There is no uncovertebral joint osteoarthritis. There is severe bilateral facet joint osteoart hritis. There is mild left neural foraminal stenosis. There is no central canal stenosis. IMPRESSION: 1. No fracture. 2. Severe cervical spondylosis. 3. Chronic sinusitis. Reviewed, dictated and finalized at location A. METER TECHNICIAN
[2024-10-29 12:26] VITALS: BP 150/73; PULSE 67; RESP 16; TEMP 36.4; O2SAT 100
--- NOTE | 2024-10-29 13:08 | ED.FALL ---
HPI - Fall General Chief Complaint: Fall <Danette Vu PA-C - Last Filed: 10/30/24 17:24> Stated Complaint: glf, hit head takes blood thinners <RANDY Reyes Last Filed: 10/30/24 17:24> Time Seen by Provider: 10/29/24 13:08 <Danette Vu PA-C - Last Filed: 10/30/24 17:24> Focused HPI: This is a 84 year old female that present to the ER after a dall. Was walking into a store. Slipped and fell on ice. Did hit her head. She did not lose consciousness. Was able to walk after. She is on anticoagulation. GENERAL: Elderly, well-nourished, and in no acute distress. HEAD: Normocephalic. Contusion to the right upper eyelid CHEST: Clear to auscultation. ?No respiratory distress. HEART: Regular rate and rhythm.? NEURO: ?Alert and oriented x3. Patient screened in triage and initial orders placed.? ?Additional care and disposition to be based upon?diagnostic testing and treatment. <Danette Vu PA-C - Last Filed: 10/30/24 17:24> Focused HPI: This is a 84 year old female that present to the ER after a fall. Was walking into a store. Slipped and fell on ice. Did hit her head. She did not lose consciousness. Was able to walk after. She is on anticoagulation. GENERAL: Elderly, well-nourished, and in no acute distress. HEAD: Normocephalic. Contusion to the right upper eyelid CHEST: Clear to auscultation. ?No respiratory distress. HEART: Regular rate and rhythm.? NEURO: ?Alert and oriented x3. Patient screened in triage and initial orders placed.? ?Additional care and disposition to be based upon?diagnostic testing and treatment. <RANDY Ruano Last Filed: 10/30/24 01:52> Source: patient <RANDY Ruano Last Filed: 10/30/24 01:52> Mode of arrival: ambulatory <RANDY Ruano Last Filed: 10/30/24 01:52> Limitations: no limitations <Luis Miguel Harkins PA-C - Last Filed: 10/30/24 01:52> History of Present Illness HPI Narrative: Agree with triage note above. Patient denies any further injury besides the head injury. <Luis Miguel Harkins PA-C - Last Filed: 10/30/24 01:52> Related Data Home Medications: Home Medications ?Medication ?Instructions ?Recorded ?Confirmed ?Last Taken ?Type rivaroxaban 20 mg tablet (Xarelto) 20 mg PO QPM 11/05/23 05/12/24 Unknown History cholecalciferol (vitamin D3) 25 25 mcg PO DAILY 01/28/24 05/12/24 Unknown History mcg (1,000 unit) capsule doxycycline hyclate 100 mg capsule 100 mg PO BID 05/12/24 05/12/24 Unknown History <Danette Vu PA-C - Last Filed: 10/30/24 17:24> Allergies/Adverse Reactions: Allergies Allergy/AdvReac Type Severity Reaction Status Date / Time levofloxacin AdvReac Intermediate shakes Verified 10/29/24 12:23 <Danette Vu PA-C - Last Filed: 10/30/24 17:24> Review of Systems Review of Systems: All systems as dictated in HPI <Luis Miguel Harkins PA-C - Last Filed: 10/30/24 01:52> [facility] Past Medical History Medical History: Medical History (Updated 10/30/24 @ 17:24 by Danette Vu PA-C) Postmenopausal CKD (chronic kidney disease) stage 1, GFR 90 ml/min or greater Cholangiocellular carcinoma Elevated alkaline phosphatase level Essential (primary) hypertension Gastro-esophageal reflux disease without esophagitis History of gallbladder cancer IGT (impaired glucose tolerance) Mixed hyperlipidemia <Danette Vu PA-C - Last Filed: 10/30/24 17:24> Surgical History Surgical History: Surgical History (Updated 01/28/24 @ 12:54 by Neena Eid [facility]) History of hernia repair H/O: hysterectomy 2021 associated with hernia repair Hx of resection of liver Hx laparoscopic cholecystectomy <Danette Vu PA-C - Last Filed: 10/30/24 17:24> Family History Family History: Family History Mother Family history of osteoarthritis Family history of Alzheimer's disease Family history of malignant neoplasm of breast in first degree relative Father Family history of alcoholism Family history of Alzheimer's disease <Danette Vu PA-C - Last Filed: 10/30/24 17:24> Social History Social History: Social History (Updated 01/28/24 @ 12:55 by Neena Eid [facility]) Social History: Patient lives alone. She is recently in 2021; her children live close by. She is a lifelong nonsmoker. Denies alcohol or drug use. She was exposed to secondhand smoke. She is DNR. She nominates her daughter to be the individual would make medical decisions for her if she is unable. Smoking status: Never smoker Second hand tobacco smoke exposure: Yes Alcohol intake: never Substance use: never Substance use type: does not use Do You Feel Safe in your Home?: Yes Lack of Transportation: No Lack of Food: Never True Current Housing: I Have Housing Concerned About Future Housing: No Difficulty Paying Gas/Electric Bills: No Difficulty Paying for Meds: No Currently Unemployed: No Education: High School Diploma/GED Difficulty w/ Childcare or Family Care: No Living arrangements: alone Occupation/Education: retired Gender identity (if verbalized by the patient): Female Spiritual care concerns: No <Danette Vu PA-C - Last Filed: 10/30/24 17:24> Exam Narrative: GENERAL: Well-appearing, well-nourished, and in no acute distress. HEAD: Normocephalic, atraumatic. EYES: Left periorbital ecchymosis present with moderate swelling. PERRLA and EOMI, without pain. ENT: No septal hematoma. Nares clear, no rhinorrhea or epistaxis. Mucous membranes moist. Oropharynx without tonsillar hypertrophy exudate or other lesions. NECK: Supple. No adenopathy or masses. CHEST: No respiratory distress. Clear to auscultation. No wheezes rales or rhonchi HEART: Regular rate and rhythm. No murmur heard. Normal peripheral pulses. ABDOMEN: Soft, nontender, nondistended, normal active bowel sounds. MSK: Normal range of motion. No edema. SKIN: Warm, dry, no rash. NEURO: Alert and oriented x4. No focal deficits. PSYCH: Normal mood and affect. <Luis Miguel Harkins PA-C - Last Filed: 10/30/24 01:52> Course Vital Signs Vital signs: Vital Signs Temperature 97.6 F 10/29/24 12:26 Pulse Rate 67 10/29/24 12:26 Respiratory Rate 16 10/29/24 12:26 Blood Pressure 150/73 H 10/29/24 12:26 Pulse Oximetry 100 10/29/24 12:26 Temperature 97.9 F 10/29/24 16:27 Pulse Rate 57 L 10/29/24 16:27 Respiratory Rate 16 10/29/24 16:27 Blood Pressure 160/70 H 10/29/24 16:27 Pulse Oximetry 99 10/29/24 16:27 <Danette Vu PA-C - Last Filed: 10/30/24 17:24> Vital Signs Temperature 97.6 F 10/29/24 12:26 Pulse Rate 67 10/29/24 12:26 Respiratory Rate 16 10/29/24 12:26 Blood Pressure 150/73 H 10/29/24 12:26 Pulse Oximetry 100 10/29/24 12:26 Temperature 97.9 F 10/29/24 16:27 Pulse Rate 57 L 10/29/24 16:27 Respiratory Rate 16 10/29/24 16:27 Blood Pressure 160/70 H 10/29/24 16:27 Pulse Oximetry 99 10/29/24 16:27 <Luis Miguel Harkins PA-C - Last Filed: 10/30/24 01:52> MDM - Fall MDM Narrative Medical decision making narrative: This is a 84-year-old female who presents to the ED for chief complaint of, the fall that occurred earlier today. Vitals are normal. Exam remarkable periorbital ecchymosis. CT brain: Impression: No acute intracranial hemorrhage or suspicious mass effect. Opacification of the right frontal, right ethmoid and right maxillary sinuses likely representing blood products from acute fracture, better evaluated on dedicated facial bone CT. CT facial bones and cervical spine: IMPRESSION: 1. No fracture. 2. Severe cervical spondylosis. 3. Chronic sinusitis. Presentation consistent with periorbital ecchymosis and swelling, however imaging is reassuring overall. Exam of the patient and she does not have any further injuries require imaging today. Patient will be discharged in stable condition. Supportive measures discussed and return precautions given. Patient is understanding and agreeable with plan for discharge with PCP follow-up. <Luis Miguel Harkins PA-C - Last Filed: 10/30/24 01:52> Critical Care Time Critical Care Time Critical Care Time: No <Danette Vu PA-C - Last Filed: 10/30/24 17:24> Discharge Plan Discharge Clinical Impression: Periorbital ecchymosis Qualifiers: Encounter type: initial encounter Laterality: right Qualified Code(s): S00.11XA - Contusion of right eyelid and periocular area, initial encounter Fall Qualifiers: Encounter type: initial encounter Qualified Code(s): W19.XXXA - Unspecified fall, initial encounter <Danette Vu PA-C - Last Filed: 10/30/24 17:24> Patient Disposition: Home, Self-Care <Danette Vu PA-C - Last Filed: 10/30/24 17:24> Condition: Stable <Danette Vu PA-C - Last Filed: 10/30/24 17:24> Instructions: Antibiotic Form <RANDY Reyes Last Filed: 10/30/24 17:24> Additional Instructions: Exam today is reassuring overall. Please take Tylenol regularly for pain control. Use ice for the bruising and swelling. Follow-up with PCP on this issue. If you have any new or worsening symptoms please return to the ER for further evaluation. <Danette Vu PA-C - Last Filed: 10/30/24 17:24> Patient Language: Urdu <Danette Vu PA-C - Last Filed: 10/30/24 17:24> Prescriptions: No Action cholecalciferol (vitamin D3) 25 mcg (1,000 unit) capsule 25 mcg PO DAILY Xarelto 20 mg tablet 20 mg PO QPM Rx Instructions: must administer with evening meal doxycycline hyclate 100 mg capsule 100 mg PO BID cyanocobalamin (vitamin B-12) [Vitamin B-12] 1,000 mcg tablet 1,000 mcg PO QAM Qty: 30 5RF furosemide 20 mg tablet See Rx Instructions .ROUTE .COMPLEX Qty: 90 1RF Dose Instruction: TAKE 1 TABLET BY MOUTH DAILY Rx Instructions: TAKE 1 TABLET BY MOUTH DAILY metoprolol tartrate 25 mg tablet 25 mg PO Q12HR Qty: 60 5RF omeprazole 40 mg capsule,delayed release(DR/EC) 40 mg PO BID Qty: 60 5RF <Danette Vu PA-C - Last Filed: 10/30/24 17:24> Follow-up/Referrals: Sherman De La Rosa APRN [Primary Care Provider] - <Danette Vu PA-C - Last Filed: 10/30/24 17:24> Time of Disposition: 19:22 <Danette Vu PA-C - Last Filed: 10/30/24 17:24> 19:22 <Luis Miguel Harkins PA-C - Last Filed: 10/30/24 01:52>
--- OUTSIDE RECORDS SUMMARY | 2024-10-29 13:09 | XMS_ITS | Referral Summary ---
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 Active acetaminophen (TYLENOL) 500 mg tablet Take 1 tablet (500 mg total) by mouth every 6 (six) hours as needed for pain Active rivaroxaban (XARELTO) 15 mg tablet Take 1 tablet (15 mg total) by mouth daily with dinner 30 tablet 11 3 Active metoprolol tartrate (LOPRESSOR) 25 mg immediate release tablet Take 1 tablet (25 mg total) by mouth every 12 (twelve) hours 3 Active cyanocobalamin (Vitamin B-12) 1,000 mcg tabletIndicatio ns:Prevention of Vitamin B12 Deficiency Take 1 tablet (1,000 mcg total) by mouth daily Active cholecalciferol (VITAMIN D-3) 1,000 unit capsuleIndicati ons:bone mineral disease Take 1 capsule (1,000 Units total) by mouth daily 90 capsule 2 4 Active docusate sodium (COLACE) 100 mg capsuleIndicati ons:constipatio n Take 1 capsule (100 mg total) by mouth 2 (two) times a day Active clindamycin (CLEOCIN) 300 mg capsule Take 1 capsule (300 mg total) by mouth 3 (three) times a day 4 Active Active Problems Problem Noted Date Diagnosed Date Primary hypertension 12/10/2023 Paroxysmal atrial fibrillation (CMS/HCC) 023 PVC (premature ventricular contraction) 09/17/20 23 LBBB (left bundle branch block) 09/17/2023 Chronic anticoagulation 09/17/2023 Thrombocytopenia 09/17/2023 Stage 3 chronic kidney disease 09/17/2023 S/P repair of recurrent ventral hernia 2 Partial small bowel obstruction (CMS/HCC) 2021 Incisional hernia, without obstruction or gangre ne 10/17/2021 Overview (10/17/2021): Added automatically from request for surgery [id number] Pseudophakia of left eye 05/22/2019 Pseudophakia of right eye 03/06/2019 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 09/10/2018 Overview (09/10/2018): Added automatically from request for surgery [id number] Nuclear sclerotic cataract of right eye 09/10/20 18 Overview (02/20/2019): Added automatically from request for surgery [id number] 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 Nuclear sclerotic cataract of left eye 8 Overview (07/04/2018): Added automatically from request for surgery [id number] Combined forms of age-related cataract 6 Malignant neoplasm of gallbladder 08/08/2011 Overview (01/09/2018): Description: Malignant Neoplasm Of The Gallbladder Tear film insufficiency 03/27/2011 Dry eye syndrome Cataract Immunizations Name Administration Dates Next Due Influenza, Quadrivalent, Hig h Dose, Preservative Free, Intrr 07/26/2020 Influenza, Trivalent, High D ose, Split, Preservative Free, Intramuscular 06/30/2019,07/21/2018,06/29/2017,06/19 Influenza, Trivalent, IM (MDV) 06/24/2014 Influenza, Trivalent, Preser vative Free, Intramuscular 06/16/2015 Influenza, Unspecified 11/01/2021,06/30/2013,06/2012 Pneumococcal Conjugate PCV 13 06/19/2016 Pneumococcal Polysaccharide PPV23 06/29/2017 Tdap 06/29/2017 Social History Tobacco Use Types Packs/Day Years Used Date Smoking Tobacco: Never Smokeless Tobacco: Never Tobacco Cessation:Counseling Given: Not Answered Alcohol Use Standard Drinks/Week Comments No 0 (1 standard drink = 0.6 oz pur e alcohol) AUDIT-C Answer Date Recorded Q1: How often do you have a drink containing alc ohol? 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 Gender Identity Not on file Sexual Orientation Not on file Last Filed Vital Signs Vital Sign Reading Time Taken Comments Blood Pressure 142/86 06/30/2024 10:16 AM CDT Pulse 59 06/30/2024 10:16 AM CDT Temperature 36.6 ??C (97.9 ??F) 12/26/2023 8:10 AM CD T Respiratory Rate 16 12/26/2023 8:10 AM CDT Oxygen Saturation 96% 06/30/2024 10:16 AM CDT Inhaled Oxygen Concentration - - Weight 82.1 kg (181 lb) 06/30/2024 10:16 AM CDT Height 165.1 cm (5' 5 ) 06/30/2024 10:16 AM CDT Body Mass Index 30.12 06/30/2024 10:16 AM CDT Plan of Treatment Not on file Medical Devices Implanted Type Area Production Control Expert Device Identifier Shelf Expiration Date Model / Serial / Lot [employer] Sn60wf.210 Acrysof Iq Natural Stableforce Acrysert 6mm 13mm 1 Piece Foldable - [id number] - [id number] Implanted:Qty: 1 on 03/05/2019 by Bernard Barrow MD at [facility] Lens Right: Eye [employer] [id number] 09/29/2023 SN60WF .210 / [id number] / 0 [employer] [id number].210 Acrysof Iq Natural Stableforce Acrysert 6mm 13mm 1 Piece Foldable - [id number] - [id number] Implanted:Qty: 1 on 05/21/2019 by Bernard Barrow MD at [facility] Lens Left: Eye [employer] [id number] 10/30/2023 SN60WF .210 / [id number] / 0 [employer]/C R Bard [id number] Bard [id number] Monofilament Soft Lightweight Low Profile Square - [id number] - [id number] Implanted:Qty: 1 on 01/23/2022 by Heri Fontenot MD at [facility] Mesh N/A: Abdomen [employer]/C R Bard [id number] 05/27/2026 [id number] / [id number] / [id number] Insurance MEDICARE [facility] MEDICARE [id number] [facility] MEDICARE [facility] Advance Directives For more information, please contact: [phone] Documents on File Type Date Recorded 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 DIRECTIVE 03/08/2019 9:35 AM * Full Code (Latest Code Status on File) Date Activated Date Inactivated Comments 01/23/2022 3:47 PM 01/26/2022 7:09 PM * Full Code Date Activated Date Inactivated Comments 12/02/2021 7:18 PM 12/05/2021 7:30 PM * Full Code Date Activated Date Inactivated Comments 10/04/2021 12:55 PM 10/05/2021 4:50 AM * Full Code Date Activated Date Inactivated Comments 05/08/2021 10:10 AM 05/08/2021 5:39 PM * Full Code Date Activated Date Inactivated Comments 05/20/2019 11:39 PM 05/21/2019 7:31 PM Care Teams Ict Help Desk Technician Relationship Specialty Start Date End Date Sherman De La Rosa NP [address] [facility] [address] [place] [id number] PCP - General Nurse Practitioner 06/30/24 Miguel Alamo MD [address] [facility] [address] [place] [address] [address] [place] [address] Referring Physician Obstetrics and Gynecology 05/04/21 Heri Fontenot MD [address] [facility] [address] [place] [address] Referring Physician General Surgery 09/03/21
--- OUTSIDE RECORDS SUMMARY | 2024-10-29 13:09 | XMS_ITS | Clinical Summary ---
Author Organization [facility] Address [address] [place] [address] Care Team Providers Care Cms Expert Name Role Phone Unavailable Primary Care Provider Unavailabl e Source Comments [facility],non-owned Affiliates and Associated Physician Practices is amultiple site organization consisting of ambulatory clinics and hospital sitesin [place] and [place]. This disclosure is being madepursuant to the Care Everywhere program and may not contain all information available regarding this patient. Last updated 18.[facility] Social History Tobacco Use Types Packs/Day Years Used Date Smoking Tobacco: Never Assessed Sex and Gender Information Value Date Recorded Sex Assigned at Not on file Gender Identity Not on file Sexual Orientation Not on file Plan of Treatment Health Maintenance Due Date Last Done Comments BONE DENSITY TESTING 1940 MEDICARE AWV ? 12 MONTHS 1940 DTAP/TDAP/TD VACCINES (1 - Tdap) 1959 PNEUMOCOCCAL VACCINE 50+ (1 of 1 - PCV) 1990 ZOSTER VACCINE (1 of 2) 1990 Respiratory Syncytial Virus (RSV) Vaccine Pt: or over 60 yrs (1 - 1-dose 75+ series) 2015 COVID-19 VACCINE (2023-2 5 season) 2024 INFLUENZA VACCINE (#1) 2024 DEPRESSION SCREENING 09/30/2024 HEPATITIS B VACCINE Aged Out No longe r eligible based on patient's age to complete this topic HIB VACCINE Aged Out No longer eligi ble based on patient's age to complete this topic HPV VACCINE Aged Out No longer eligi ble based on patient's age to complete this topic MENINGOCOCCAL (Group B) VACCINE Aged Out No longer eligible based on patient's age to complete this topic MENINGOCOCCAL VACCINE Aged Out No dixie thompson eligible based on patient's age to complete this topic
--- OUTSIDE RECORDS SUMMARY | 2024-10-29 13:09 | XMS_ITS | Patient Health Summary ---
Author Organization [facility] Address [address] [place] [address] Care Team Providers Care Oracle Scm Consultant Name Role Phone Unavailable Primary Care Provider Unavailabl e Note from [facility],non-owned Affiliates and Associated Physician Practices is amultiple site organization consisting of ambulatory clinics and hospital sitesin [place], [place], [place] and [place]. This disclosure is being madepursuant to the Care Everywhere program and may not contain all information available regarding this patient. Last updated 18.[facility] Social History Tobacco Use Types Packs/Day Years Used Date Smoking Tobacco: Never Assessed Sex and Gender Information Value Date Recorded Sex Assigned at Not on file Gender Identity Not on file Sexual Orientation Not on file Procedures * DERMATOPATHOLOGY(Performed 04/16/2019) * DERMATOPATHOLOGY(Performed 01/05/2019) Results * DERMATOPATHOLOGY (04/16/2019 12:00 AM CDT) Only the most recent of2 resultswithin the time period is included. Case Report Dermatopathology Report ? Case: [id number] ? Authorizing Provider: ??Amanda Myoa MD ?Collected: ? 04/16/2019 12:00 AM ? Pathologist: ? Delaney Castañeda MD ?Received: ?04/17/2019 06:48 AM ? Specimens: ?? A) - Skin, post scalp ? B) - Skin, left cheek ? 9 1:35 PM CDT DERMATOPATHOLOGY LABORATORY Final Diagnosis Specimen A. SKIN, post scalp: EPIDERMOID CYST (L72.0) Specimen B. SKIN, left cheek: INTRADERMAL MELANOCYTIC NEVUS (D22.39) CALCINOSIS CUTIS (L94.2) 9 1:35 PM T DERMATOPATHOLOGY LABORATORY Clinical History A: R/O EIC B: R/O BCC vs [facility] 9 1:35 PM CDT DERMATOPATHOLOGY LABORATORY Gross Description Specimen A: Received is one formalin filled container labeled with the patient's name and designated post scalp. The specimen consists of a punch biopsy measuring 5x5x7 mm. Jar 0. Specimen B: Received is one formalin filled container labeled with the patient's name and designated left cheek. The specimen consists of a shave biopsy measuring 4x2x1 mm. Jar 0. 9 1:35 PM CDT DERMATOPATHOLOGY LABORATORY Microscopic Description Specimen A. SKIN, post scalp: Within the dermis, there is a space lined by epithelium that resembles normal epidermis and the infundibular portion of the hair follicle. Specimen B. SKIN, left cheek: There are nests of cytologically bland melanocytes within the dermis that mature with depth. Within the dermis, there are aggregates of homogenous amorphous basophilic material consistent with calcium. 9 1:35 PM CDT DERMATOPATHOLOGY LABORATORY Disclaimer An external and internal positive and negative controls are appropriate for the histochemical, immunohistochemical and immunofluorescence stain(s) in this case (if any), except where stated explicitly. The performance characteristics of the stain(s) cited in this report were developed and its performance characteristic determined by the Dermatopathology Laboratory at [facility], directed by Dr. Jorge Barrios. These tests need not be, and therefore are not, approved by the [place] Food and Drug Administration. The tests are used for clinical purposes. Billing Codes Specimen Charges Stain Charges 81215 04677 1 1 9 1:35 PM CDT DERMATOPATHOLOGY LABORATORY Embedded Images 9 1:35 PM CDT DERMATOPATHOLOGY LABORATORY Pathology/Cytology TISSUE SPECIMEN FROM SKIN / Unknown 04/16/2019 04/17/2019 6:48 AM CDT Miscellaneous samples (specimen) TISSUE SPECIMEN FROM SKIN / Unknown 04/16/2019 04/17/2019 6:48 AM CDT Amanda Moya MD LAB - PATHOLOGY/CYTO LOGY ORDERABLES DERMATOPATHOLOGY LABORATORY [facility] - Department of Dermatology [facility] [facility], [address]th [address] [place], [place] [address] [phone]
--- OUTSIDE RECORDS SUMMARY | 2024-10-29 13:09 | XMS_ITS | Encounter Summary ---
Author Organization [facility] Address [address] [place] [address] Care Team Providers Care Wood Buffer Name Role Phone Unavailable Primary Care Provider Unavailabl e Encounter Details Date Type Department Care Team (Late st Contact Info) Description 01/06/[address] [facility] Care DermPath Lab [address] [facility], [place] [address] Amanda Moya MD [address] [facility] 3 [place] [address] Social History Tobacco Use Types Packs/Day Years Used Date Smoking Tobacco: Never Assessed Sex and Gender Information Value Date Recorded Sex Assigned at Not on file Gender Identity Not on file Sexual Orientation Not on file documented as of this encounter Plan of Treatment Not on file documented as of this encounter Procedures Procedure Name Priority Date/Time Associated Diagnosis Comments DERMATOPATHOLOGY Routine 01/05/2019 12:0 0 AM CDT documented in this encounter Results * DERMATOPATHOLOGY (01/05/2019 12:00 AM CDT) Case Report Dermatopathology Report ? Case: [id number] ? Authorizing Provider: ??Amanda Moya MD ?Collected: ? 01/05/2019 12:00 AM ? Pathologist: ? Delaney Castañeda MD ?Received: ?01/06/2019 06:27 AM ? Specimen: ?Skin, left elbow ? 1:21 PM CDT DERMATOPATHOLOGY LABORATORY Final Diagnosis Specimen A. SKIN, left elbow: EPIDERMOID CYST (L72.0) 1:21 PM CDT DERMATOPATHOLOGY LABORATORY Clinical History Cyst, new cystic nodule, spiraderma. 1:21 PM CDT DERMATOPATHOLOGY LABORATORY Gross Description Specimen A: Received is one formalin filled container labeled with the patient's name and designated left elbow. The specimen consists of a punch measuring [id number], bisected. Jar 0. 1:21 PM CDT DERMATOPATHOLOGY LABORATORY Microscopic Description Specimen A. SKIN, left elbow: Within the dermis, there is a space lined by epithelium that resembles normal epidermis and the infundibular portion of the hair follicle. 1:21 PM CDT DERMATOPATHOLOGY LABORATORY Disclaimer An external and internal positive and negative controls are appropriate for the histochemical, immunohistochemical and immunofluorescence stain(s) in this case (if any), except where stated explicitly. The performance characteristics of the stain(s) cited in this report were developed and its performance characteristic determined by the Dermatopathology Laboratory at [facility], directed by Dr. Jorge Barrios. These tests need not be, and therefore are not, approved by the [place] Food and Drug Administration. The tests are used for clinical purposes. Billing Codes Specimen Charges Stain Charges 48940 1 1:21 PM CDT DERMATOPATHOLOGY LABORATORY Embedded Images 1:21 PM CDT DERMATOPATHOLOGY LABORATORY Pathology/Cytolog y TISSUE SPECIMEN FROM SKIN / Unknown 01/05/2019 01/06/2019 6:27 AM CDT Amanda Moya MD LAB - PATHOLOGY/CYTO LOGY ORDERABLES DERMATOPATHOLOGY LABORATORY [facility] - Department of Dermatology [address] [facility], [address]th [place] [address], [facility] [phone] documented in this encounter Visit Diagnoses Not on filedocumented in this encounter
--- OUTSIDE RECORDS SUMMARY | 2024-10-29 13:09 | XMS_ITS | Referral Summary ---
Author Organization [facility] Address [address] [place] [address] Care Team Providers Care Cuff Turner Name Role Phone Unavailable Primary Care Provider Unavailabl e Source Comments [facility] [email or web address],non-owned Affiliates and Associated Physician Practices is amultiple site organization consisting of ambulatory clinics and hospital sitesin [place], [place], [place] and [place]. This disclosure is being madepursuant to the Care Everywhere program and may not contain all information available regarding this patient. Last updated 18.[facility] [email or web address] Social History Tobacco Use Types Packs/Day Years Used Date Smoking Tobacco: Never Assessed Sex and Gender Information Value Date Recorded Sex Assigned at Not on file Gender Identity Not on file Sexual Orientation Not on file Plan of Treatment Not on file
--- OUTSIDE RECORDS SUMMARY | 2024-10-29 13:09 | XMS_ITS | Encounter Summary ---
Author Organization [facility] Address [address] [place] [address] Care Team Providers Care Instrument Worker Name Role Phone Unavailable Primary Care Provider Unavailabl e Encounter Details Date Type Department Care Team (Late st Contact Info) Description 04/17/2019 Lab Requisition [facility] Care DermPath Lab [address] [facility] [place] [place] [address] Amanda Moya MD [address] [facility] [address] [place] [address] Social History Tobacco Use Types Packs/Day Years Used Date Smoking Tobacco: Never Assessed Sex and Gender Information Value Date Recorded Sex Assigned at Not on file Gender Identity Not on file Sexual Orientation Not on file documented as of this encounter Plan of Treatment Not on file documented as of this encounter Procedures Procedure Name Priority Date/Time Associated Diagnosis Comments DERMATOPATHOLOGY Routine 04/16/2019 12:0 0 AM CDT documented in this encounter Results * DERMATOPATHOLOGY (04/16/2019 12:00 AM CDT) Case Report Dermatopathology Report ? Case: [id number] ? Authorizing Provider: ??Amanda Moya MD ?Collected: ? 04/16/2019 12:00 AM ? Pathologist: ? Delaney Castañeda MD ?Received: ?04/17/2019 06:48 AM ? Specimens: ?? A) - Skin, post scalp ? B) - Skin, left cheek ? 1:35 PM CDT DERMATOPATHOLOGY LABORATORY Final Diagnosis Specimen A. SKIN, post scalp: EPIDERMOID CYST (L72.0) Specimen B. 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 Jar 0. 1:35 PM T DERMATOPATHOLOGY LABORATORY Microscopic Description Specimen A. SKIN, [...] homogenous amorphous basophilic material consistent with calcium. 1:35 PM T DERMATOPATHOLOGY LABORATORY Disclaimer An external and internal positive and negative controls are appropriate for the histochemical, immunohistochemical and immunofluorescence stain(s) in this case (if any), except where stated explicitly. The performance characteristics of the stain(s) cited in this report were developed and its performance characteristic determined by the Dermatopathology Laboratory at [facility], directed by Dr. Jorge Barrios. These tests need not be, and therefore are not, approved by the [place] Food and Drug Administration. The tests are used for clinical purposes. Billing Codes Specimen Charges Stain Charges 79781 88640 1 1 9 1:35 PM CDT DERMATOPATHOLOGY LABORATORY Embedded Images 9 1:35 PM CDT DERMATOPATHOLOGY LABORATORY Pathology/Cytology TISSUE SPECIMEN FROM SKIN / Unknown 04/16/2019 04/17/2019 6:48 AM CDT Miscellaneous samples (specimen) TISSUE SPECIMEN FROM SKIN / Unknown 04/16/2019 04/17/2019 6:48 AM CDT Amanda Moya MD LAB - PATHOLOGY/CYTO LOGY ORDERABLES DERMATOPATHOLOGY LABORATORY [facility] - Department of Dermatology [address] [place] [address], [address]th [place] [address], [facility] [phone] documented in this encounter Visit Diagnoses Not on filedocumented in this encounter
--- OUTSIDE RECORDS SUMMARY | 2024-10-29 13:09 | XMS_ITS ---
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 09/10/2018 Overview (09/10/2018): Added automatically from request for surgery [id number] Nuclear sclerotic cataract of right eye 09/10/20 18 Overview (02/20/2019): Added automatically from request for surgery [id number] 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 Past Plans No past plan information found. Radiation Treatments * No radiation treatments are documented for this patient in [facility]. Treatments may have been administered in another system. Lifetime Dose Tracking * Chemical Lifetime Dose Automatic Entry Manual Entr y DLP 3,023 mGycm 3,023 mGycm 0 mGycm
--- OUTSIDE RECORDS SUMMARY | 2024-10-29 13:09 | XMS_ITS | Clinical Summary ---
Author Organization [facility] Address [address] [place] [address] Care Team Providers Care Tong Setter Name Role Phone Miguel Alamo MD Unavailable [phone] Heri Fontenot MD Unavailable [phone] Sherman De La Rosa NP Primary Care Provider Allergies Active Allergy Reactions Criticality Noted Date Comments Levofloxacin Palpitations Low Medications omeprazole (PriLOSEC) 40 mg capsuleIndicati ons:Treatment of Non-Bleeding Gastric Disorder Take 1 capsule (40 mg total) by mouth separations scientist before breakfast Active acetaminophen (TYLENOL) 500 mg [...] (10/17/2021): Added automatically from request for surgery [id number] Pseudophakia of left eye 05/22/2019 Pseudophakia of right eye 03/06/2019 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 09/10/2018 Overview (09/10/2018): Added automatically from request for surgery [id number] Nuclear sclerotic cataract of right eye 09/10/20 18 Overview (02/20/2019): Added automatically from request for surgery [id number] 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 Nuclear sclerotic cataract of left eye 8 Overview (07/04/2018): Added automatically from request for surgery [id number] Combined forms of age-related cataract 6 Malignant [...] 06/19/2016 Pneumococcal Polysaccharide PPV23 06/29/2017 Tdap 06/29/2017 Surgical History Surgery Date Site/Laterality Comments GALLBLADDER SURGERY 09/30/2008 - 09/29/2009 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 LIVER SURGERY 09/30/2008 - 09/29/2009 for gallbladder mets COLONOSCOPY CATARACT EXTRACTION W/ INTRAOCULAR LENS IMPLANT 03/05/2019 Right CATARACT EXTRACTION W/ INTRAOCULAR LENS IMPLANT 05/21/2019 Left CHOLECYSTECTOMY INCISIONAL HERNIA REPAIR 01/23/2022 TAR Medical History Medical History Date Comments Dry eye syndrome Cataract History of cancer of gall bladder Hypertension GERD (gastroesophageal reflux disease) Claustrophobia severe Osteoporosis Shortness of breath Tachycardia Chronic kidney disease Viral URI Paroxysmal atrial fibrillation (CMS/HCC) (HCC) 1 11/18/2022 LBBB (left bundle branch block) 09/17/2023 Family History Medical History Relation Name Comments Heart attack Brother Stroke Maternal Grandfather Alzheimer's disease Mother Breast cancer Mother Anesthesia problems Neg Hx Relation Name Status Comments Brother (Age 57) fatal [place] Father Maternal Grandfather Mother Social History Tobacco Use Types Packs/Day Years [...] on file Legal Sex Female 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 Gender Identity Not on file Sexual Orientation Not on file Obstetrics History Para Term AB IAB SAB Ectopic Multiple Livin g Live Births 2 2 2 2 Date Outcome GA Total Labor Labor/2nd/3rd Weight Sex Type Anes PTL Nelly A1 A5 Name Clin Term Term Last Filed Vital Signs Vital Sign Reading [...] 06/30/2024 10:16 AM CDT Plan of Treatment Health Maintenance Due Date Last Done Comments Depression Screening 1940 Osteoporosis Screening-Bone Density Scan 1940 Hepatitis B Screening 1958 Zoster Vaccine (1 of 2) 1990 Well Visit 65+ 2005 Fall Risk Assessment 01/26/2023 01/26/2022 Influenza Vaccine (#1) 2024 , 07/26/2020, 06/30/2019, Additional history exists DTaP/Tdap/Td Vaccine (2 - Td or Tdap) 06/29/2027 06/29/2017 Pneumococcal vaccine 65+ Completed 06/29/2017, 06/01 Medical Devices Implanted Type Area Customer Counter Associate Device Identifier Shelf Expiration Date Model / Serial / Lot [employer] Sn60wf.210 Acrysof Iq Natural Stableforce Acrysert 6mm 13mm 1 Piece Foldable - [id number] - [id number] Implanted:Qty: 1 on 03/05/2019 by Bernard Barrow MD at [facility] Lens Right: Eye [employer] [id number] 09/29/2023 SN60WF .210 / [id number] / [employer] [id number].210 Acrysof Iq Natural Stableforce Acrysert 6mm 13mm 1 Piece Foldable - [id number] - [id number] Implanted:Qty: 1 on 05/21/2019 by Bernard Barrow MD at [facility] Lens Left: Eye [employer] [id number] 10/30/2023 SN60WF .210 / [id number] / 0 [employer]/C R Bard [id number] Monofilament Soft Lightweight Low Profile Square - [id number] - [id number] Implanted:Qty: 1 on 01/23/2022 by Heri Fontenot MD at [facility] Mesh N/A: Abdomen [employer]/C R Bard [id number] 05/27/2026 [id number] / [id number] / [id number] Insurance MEDICARE [facility] MEDICARE [facility] MEDICARE [facility] Advance Directives For more information, please contact: [phone] Documents on File Type Date Recorded Patient Regional Facilities Specialist Expl anation ADVANCE DIRECTIVE 03/08/2019 9:35 AM [...] 11:39 PM 05/21/2019 7:31 PM Care Teams Tong Setter Relationship Specialty Start Date End Date Sherman De La Rosa NP [address] [facility] [facility] [address] [place], [place] [address] PCP - General Nurse Practitioner 06/30/24 Miguel Alamo MD [address] [facility] [address] [place] [address] Referring Physician Obstetrics and Gynecology 05/04/21 Heri Fontenot MD [address] [facility] [address] [place] [address] Referring Physician General Surgery 09/03/21
--- OUTSIDE RECORDS SUMMARY | 2024-10-29 15:45 | XMS_ITS | Encounter Summary ---
Author Organization [facility] Address [address] [place] [address] Care Team Providers Care Correctional Facility Nurse Name Role Phone Unavailable Primary Care Provider Unavailabl e Encounter Details Date Type Department Care Team (Late st Contact Info) Description 01/06/2019 Lab Requisition [facility] Care DermPath Lab [address] [facility], [place] [address] Amanda Moya MD [address] [facility] 3 [place] [address] Social History Tobacco Use Types Packs/Day Years [...] CDT) Case Report Dermatopathology Report ? Case: [id number] ? Authorizing Provider: ??Amanda Moya MD ?Collected: [...] The specimen consists of a punch measuring 2e4r5pg, bisected. Jar 0. 1:21 PM CDT DERMATOPATHOLOGY [...] characteristic determined by the Dermatopathology Laboratory at [facility], directed by Dr. Jorge Barrios. These tests need not be, and therefore are not, approved by the [place] Food and Drug Administration. The tests are used for clinical purposes. Billing Codes Specimen Charges Stain Charges 26115 1 1:21 PM CDT DERMATOPATHOLOGY LABORATORY Embedded Images 1:21 PM CDT DERMATOPATHOLOGY LABORATORY Pathology/Cytolog y TISSUE SPECIMEN FROM SKIN / Unknown 01/05/2019 01/06/2019 6:27 AM CDT Amanda Moya MD LAB - PATHOLOGY/CYTO LOGY ORDERABLES DERMATOPATHOLOGY LABORATORY [facility] - Department of Dermatology [address] [facility], 5th [place] [address], [facility] [phone] documented in this encounter Visit Diagnoses Not on filedocumented in this encounter
--- OUTSIDE RECORDS SUMMARY | 2024-10-29 15:45 | XMS_ITS | Encounter Summary ---
Author Organization [facility] Address [address] [place] [address] Care Team Providers Care Oracle Database Architect Name Role Phone Unavailable Primary Care Provider Unavailabl e Encounter Details Date Type Department Care Team (Late st Contact Info) Description 04/17/2019 Lab Requisition [facility] Care DermPath Lab [address] [facility], [place] [address] Amanda Moya MD [address] [facility] 3 [place] [address] Social History Tobacco Use Types Packs/Day Years [...] CDT) Case Report Dermatopathology Report ? Case: [id number] ? Authorizing Provider: ??Amanda Moya MD ?Collected: [...] characteristic determined by the Dermatopathology Laboratory at [facility], directed by Dr. Jorge Barrios. These tests need not be, and therefore are not, approved by the [place] Food and Drug Administration. The tests are used for clinical purposes. Billing Codes Specimen Charges Stain Charges 03216 77389 1 1 9 1:35 PM CDT DERMATOPATHOLOGY LABORATORY Embedded Images 9 1:35 PM CDT DERMATOPATHOLOGY LABORATORY Pathology/Cytology TISSUE SPECIMEN FROM SKIN / Unknown 04/16/2019 04/17/2019 6:48 AM CDT Miscellaneous samples (specimen) TISSUE SPECIMEN FROM SKIN / Unknown 04/16/2019 04/17/2019 6:48 AM CDT Amanda Moya MD LAB - PATHOLOGY/CYTO LOGY ORDERABLES DERMATOPATHOLOGY LABORATORY [facility] - Department of Dermatology [address] [place] [address], [address]th [place] [address], [facility] [phone] documented in this encounter Visit Diagnoses Not on filedocumented in this encounter
--- OUTSIDE RECORDS SUMMARY | 2024-10-29 15:45 | XMS_ITS | Patient Health Summary ---
Author Organization [facility] Address [address] [facility] [place] [address] Care Team Providers Care Celluloid Trimmer Name Role Phone Unavailable Primary Care Provider Unavailabl e Note from [facility],non-owned Affiliates and Associated Physician Practices is amultiple site organization consisting of ambulatory clinics and hospital sitesin [place], [place], [place] and [place]. This disclosure is being madepursuant to the Care Everywhere program and may not contain all information available regarding this patient. Last updated 18.[facility] Social History Tobacco Use Types Packs/Day [...] included. Case Report Dermatopathology Report ? Case: [id number] ? Authorizing Provider: ??Amanda Moya MD ?Collected: [...] characteristic determined by the Dermatopathology Laboratory at [facility], directed by Dr. Jorge Barrios. These tests need not be, and therefore are not, approved by the [place] Food and Drug Administration. The tests are used for clinical purposes. Billing Codes Specimen Charges Stain Charges 56137 59755 1 1 9 1:35 PM CDT DERMATOPATHOLOGY LABORATORY Embedded Images 9 1:35 PM CDT DERMATOPATHOLOGY LABORATORY Pathology/Cytology TISSUE SPECIMEN FROM SKIN / Unknown 04/16/2019 04/17/2019 6:48 AM CDT Miscellaneous samples (specimen) TISSUE SPECIMEN FROM SKIN / Unknown 04/16/2019 04/17/2019 6:48 AM CDT Amanda Moya MD LAB - PATHOLOGY/CYTO LOGY ORDERABLES DERMATOPATHOLOGY LABORATORY [facility] - Department of Dermatology [facility] [facility], 5th Floor [address] [place], [place] [address] [phone]
--- OUTSIDE RECORDS SUMMARY | 2024-10-29 15:45 | XMS_ITS | Referral Summary ---
Author Organization [facility] Address [address] [facility] [place] [address] Care Team Providers Care Diagnostic Sales Specialist Name Role Phone Unavailable Primary Care Provider Unavailabl e Source Comments [facility],non-owned Affiliates and Associated Physician Practices is amultiple site organization consisting of ambulatory clinics and hospital sitesin [place], [place], [place] and [place]. This disclosure is being madepursuant to the Care Everywhere program and may not contain all information available regarding this patient. Last updated 18.[facility] Social History Tobacco Use Types Packs/Day Years Used Date Smoking Tobacco: Never Assessed Sex and Gender Information Value Date Recorded Sex Assigned at Not on file Gender Identity Not on file Sexual Orientation Not on file Plan of Treatment Not on file
--- OUTSIDE RECORDS SUMMARY | 2024-10-29 15:45 | XMS_ITS | Clinical Summary ---
Author Organization [facility] Address [address] [facility] [place] [address] Care Team Providers Care Chief Technician Name Role Phone Unavailable Primary Care Provider Unavailabl e Source Comments [facility] [employer],non-owned Affiliates and Associated Physician Practices is amultiple site organization consisting of ambulatory clinics and hospital sitesin [place], [place], [place] and [place]. This disclosure is being madepursuant to the Care Everywhere program and may not contain all information available regarding this patient. Last updated 18.[facility] [employer] Social History Tobacco Use Types Packs/Day Years [...]
[2024-10-29 16:27] VITALS: BP 160/70; PULSE 57; RESP 16; TEMP 36.6; O2SAT 99
--- NOTE | 2024-10-29 19:38 | PC.NURSE ---
disposition paperwork handed to this rn by pam armas. This rn did not see the patient to do any type of assessment. EDP asked where to place disposition paperwork after completed.
== END 2024-10-29 19:39 | disposition home or self-care (01) ==
PROVIDERS: Emergency Provider Physician Assistant; PCP Nurse Practitioner
DX: S00.11XA Contusion of right eyelid and periocular area, initial encounter (principal); I12.9 Hypertensive chronic kidney disease with stage 1 through stage 4 chronic kidney disease, or unspecified chronic kidney disease; N18.1 Chronic kidney disease, stage 1; E78.2 Mixed hyperlipidemia; K21.9 Gastro-esophageal reflux disease without esophagitis; Z66 Do not resuscitate; Z85.09 Personal history of malignant neoplasm of other digestive organs; Z85.05 Personal history of malignant neoplasm of liver; Z90.89 Acquired absence of other organs; Z90.710 Acquired absence of both cervix and uterus; Z90.49 Acquired absence of other specified parts of digestive tract; Z77.22 Contact with and (suspected) exposure to environmental tobacco smoke (acute) (chronic); Z79.899 Other long term (current) drug therapy; Z79.01 Long term (current) use of anticoagulants; M47.812 Spondylosis without myelopathy or radiculopathy, cervical region; J32.9 Chronic sinusitis, unspecified; W00.0XXA Fall on same level due to ice and snow, initial encounter
CPT/HCPCS: 70450; 70486; 72125; 99284

== ENCOUNTER 2025-06-29 08:48 | Outpatient (CLI) | payer MEDICARE, SELFPAY ==
--- NOTE | ~2025-06-29 | US_ITS ---
EXAMINATION: US arterial duplex LE DATE: 06/29/2025 10:38 INDICATION: Peripheral vascular disease TECHNIQUE: Multiple grayscale and Doppler ultrasound images of the arteries of the right lower limb were obtained. COMPARISON: None FINDINGS: Normal triphasic waveforms with brisk systolic upstrokes are seen at the right external iliac, common femoral, superficial femoral, profunda femoral, popliteal, posterior tibial, peroneal and anterior tibial arteries. Monophasic, tri-inflectional waveform also with brisk systolic upstroke at the right dorsalis pedis artery. Normal triphasic waveforms with brisk systolic upstrokes at the left external iliac, common femoral, profunda femoral, superficial femoral and popliteal arteries. Biphasic waveforms with brisk systolic upstrokes at the left posterior tibial, and peroneal, anterior tibial and dorsalis pedis arteries. Mild scattered atherosclerotic plaque at a few of the arteries of both lower limbs without hemodynamically significant stenosis on the grayscale imaging. Occasional cardiac arrhythmia is present. IMPRESSION: 1. No evident hemodynamically significant stenosis with brisk systolic upstrokes throughout the arteries of the bilateral lower limbs. 2. Occasional cardiac arrhythmia is present. Correlate with EKG. Reviewed, dictated and finalized at location A. IMPRESSION: 1. No evident hemodynamically significant stenosis with brisk systolic upstroke s throughout the arteries of the bilateral lower limbs. 2. Occasional cardiac arrhythmia is present. Correlate with EKG.
--- OUTSIDE RECORDS SUMMARY | 2025-06-29 09:12 | XMS_ITS | Clinical Summary ---
Author Organization [facility] Address [address] [place] [address] Care Team Providers Care Welding Machine Operator Arc Name Role Phone Miguel Alamo MD Unavailable [phone] Heri Fontenot MD Unavailable [phone] Sherman De La Rosa NP Primary Care Provider [phone] Allergies Active Allergy Reactions Criticality Noted Date Comments Levofloxacin Palpitations Low Medications omeprazole (PriLOSEC) 40 mg capsuleIndicati ons:Treatment of Non-Bleeding Gastric Disorder Take 1 capsule (40 mg total) by mouth freight conductor before breakfast Active acetaminophen (TYLENOL) 500 mg tablet Take 1 tablet (500 mg total) by mouth every 6 (six) hours as needed for pain Active metoprolol tartrate (LOPRESSOR) 25 mg immediate [...] mouth daily 90 capsule 2 4 Active Additional Information Patient not taking.Reported on 01/29/2025 docusate sodium (COLACE) 100 mg capsuleIndicati ons:constipatio n Take 1 capsule (100 mg total) by mouth 2 (two) times a day Active clindamycin (CLEOCIN) 300 mg capsule Take 1 capsule (300 mg total) by mouth 3 (three) times a day 4 Active niacin 500 mg tablet Take 1 tablet (500 mg total) by mouth 2 (two) times a day with meals Active rivaroxaban (XARELTO) 15 mg tablet Take 1 tablet (15 mg total) by mouth daily with dinner 90 tablet 3 5 Active Active Problems Problem Noted Date Diagnosed Date Primary hypertension 12/10/2023 Paroxysmal atrial fibrillation 09/17/2023 PVC (premature ventricular contraction) 09/17/20 LBBB (left bundle branch block) 09/17/2023 Chronic anticoagulation 09/17/2023 Thrombocytopenia 09/17/2023 Stage 3 chronic kidney disease 09/17/2023 S/P repair of recurrent ventral hernia 2 Partial small bowel obstruction 12/05/2021 Incisional hernia, without obstruction or gangre ne 10/17/2021 Overview (10/17/2021): Added automatically from request for surgery [id number] Pseudophakia of left eye 05/22/2019 Pseudophakia of right eye 03/06/2019 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 09/10/2018 Overview (09/10/2018): Added automatically from request for surgery [id number] Nuclear sclerotic cataract of right eye 09/10/20 18 Overview (02/20/2019): Added automatically from request for surgery [id number] 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 Nuclear sclerotic cataract of left eye 8 Overview (07/04/2018): Added automatically from request for surgery [id number] Combined forms of age-related cataract 6 Malignant neoplasm of gallbladder 08/08/2011 Overview (01/09/2018): Description: Malignant Neoplasm Of The Gallbladder Tear film insufficiency 03/27/2011 Dry eye syndrome Cataract Immunizations Immunization Administration Dates Next Due Influenza, Quadrivalent, Hig [...] kidney disease Viral URI Paroxysmal atrial fibrillation (HCC) 09/17/2023 LBBB (left bundle branch block) 09/17/2023 Family History Medical History Relation Name Comments Heart attack Brother Stroke Maternal Grandfather Alzheimer's disease Mother Breast cancer Mother Anesthesia problems Neg Hx Relation Name Status Comments Brother (Age 57) fatal [place] Father Maternal Grandfather Mother Social History Tobacco [...] on file Legal Sex Female 2:09 AM 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 Gender Identity Not on file Sexual Orientation Not on file Obstetrics History Para Term AB IAB SAB Ectopic Multiple Livin g Live Births 2 2 2 2 Date Outcome GA Total Labor Labor/2nd/3rd Weight Sex Type Anes PTL Nelly A1 A5 Name Clin Term Term Last Filed Vital Signs Vital Sign Reading Time Taken Comments Blood Pressure 146/78 01/29/2025 10:21 AM CDT Pulse 58 01/29/2025 10:21 AM CDT Temperature 36.6 C (97.9 F) 12/26/2023 8:10 AM CDT Respiratory Rate 16 12/26/2023 8:10 AM CDT Oxygen Saturation 98% 01/29/2025 10:21 AM CDT Inhaled Oxygen Concentration - - Weight 79.8 kg (176 lb) 01/29/2025 10:21 AM CDT Height 165.1 cm (5' 5) 01/29/2025 10:21 AM CDT Body Mass Index 29.29 01/29/2025 10:21 AM CDT Plan of Treatment Health Maintenance Due Date Last Done Comments Depression Screening 1940 Osteoporosis Screening-Bone Density Scan 1940 Hepatitis B Screening 1958 Zoster Vaccine (1 of 2) 1990 Well Visit 65+ 2005 Fall Risk Assessment 01/26/2023 01/26/2022 Influenza Vaccine (#1) 2025 , 07/26/2020, 06/30/2019, Additional history exists DTaP/Tdap/Td Vaccine (2 - Td or Tdap) 06/29/2027 06/29/2017 Pneumococcal vaccine 65+ Completed 06/29/2017, 06/01 Medical Devices Implanted Type Area Acquisition Professional Device Identifier Shelf Expiration Date Model / Serial / Lot [employer] Sn60wf.210 Acrysof Iq Natural Stableforce Acrysert 6mm 13mm 1 Piece Foldable - [id number] - [id number] Implanted:Qty: 1 on 03/05/2019 by Bernard Barrow MD at [facility] Advanced Medicine Lens Right: Eye [employer] [id number] 09/29/2023 SN60WF .210 / [id number] / 0 [employer] [id number].210 Acrysof Iq Natural Stableforce Acrysert 6mm 13mm 1 Piece Foldable - [id number] - [id number] Implanted:Qty: 1 on 05/21/2019 by Bernard Barrow MD at [facility] Lens Left: Eye [employer] [id number] 10/30/2023 SN60WF .210 / [id number] / 0 [employer]/C R Bard [id number] Monofilament Soft Lightweight Low Profile Square - [id number] - [id number] Implanted:Qty: 1 on 01/23/2022 by Heri Fontenot MD at [facility] Mesh N/A: Abdomen [employer]/C R Bard [id number] 05/27/2026 [id number] / [id number] / [id number] Insurance MEDICARE [facility] MEDICARE [facility] MEDICARE BLUE CROSS MEDICARE SUPPLEMENT Advance Directives For more information, please contact: [phone] Documents on File Type Date Recorded Patient Procedure Analyst Expl anation ADVANCE DIRECTIVE 03/08/2019 9:35 AM [...] 11:39 PM 05/21/2019 7:31 PM Care Teams Welding Machine Operator Arc Relationship Specialty Start Date End Date Sherman De La Rosa, [employer] [address] [facility] [address] [place] [address] PCP - General Nurse Practitioner 06/30/24 Miguel Alamo MD [address] [place] [address] Referring Physician Obstetrics and Gynecology 05/04/21 Heri Fontenot MD [address] [facility] [address] [place] [address] Referring Physician General Surgery 09/03/21
--- OUTSIDE RECORDS SUMMARY | 2025-06-29 09:12 | XMS_ITS | Clinical Summary ---
Author Organization [facility] Address [address] [facility] [place] [address] Care Team Providers Care Tosser Name Role Phone Unavailable Primary Care Provider Unavailabl e Source Comments [facility],non-owned Affiliates and Associated Physician Practices is amultiple site organization consisting of ambulatory clinics and hospital sitesin [place], [place], [place] and [place]. This disclosure is being madepursuant to the Care Everywhere program and may not contain all information available regarding this patient. Last updated 18.[facility] Social History Tobacco Use Types Packs/Day Years Used Date Smoking Tobacco: Never Assessed Comments Unknown Sex and Gender Information Value Date Recorded Sex Assigned at Not on file Legal Sex Female 11:43 AM CDT Gender Identity Not on file Sexual Orientation Not on file Plan of Treatment Health Maintenance Due Date Last Done Comments BONE DENSITY TESTING 1940 DTAP/TDAP/TD VACCINES (1 - Tdap) 1959 PNEUMOCOCCAL VACCINE 50+ (1 of 1 - PCV) 1990 ZOSTER VACCINE (1 of 2) 1990 Respiratory Syncytial Virus (RSV) Vaccine Pt: or over 60 yrs (1 - 1-dose 75+ series) 2015 DEPRESSION SCREENING 09/30/2024 COVID-19 VACCINE (1 - 2023-2 5 season) 2025 INFLUENZA VACCINE (#1) 2025 HEPATITIS B VACCINE Aged Out No longe r eligible based on patient's age to complete this topic HIB VACCINE Aged Out No longer eligi ble based on patient's age to complete this topic HPV VACCINE Aged Out No longer eligi ble based on patient's age to complete this topic MENINGOCOCCAL (Group B) VACC INE SHARED DECISION-MAKING Aged Out No longer eligibl e based on patient's age to complete this topic MENINGOCOCCAL GROUPS A/C/Y/W VACCINE Aged Out No longer eligible b ased on patient's age to complete this topic Insurance MEDICARE [facility]LY [facility], 1928–1983
--- OUTSIDE RECORDS SUMMARY | 2025-06-29 09:12 | XMS_ITS | Encounter Summary ---
Author Organization [facility] Address [address] [place] [address] Care Team Providers Care Lead Simulation Modeling Engineer Name Role Phone Miguel Alamo MD Unavailable [phone] Heri Fontenot MD Unavailable [phone] Mikhail Garner MD Primary Care Provider [phone] Sherman De La Rosa NP Primary Care Provider [phone] Encounter Details Date Type Department Care Team (Late st Contact Info) Description 09/19/2023 Orders Only [facility] Health Information Management [address] [place] [address] Scanning, Provider Social History Tobacco Use Types Packs/Day Years Used Date Smoking Tobacco: Never Smokeless Tobacco: Never Alcohol Use Standard Drinks/Week Comments No 0 [...] on file Legal Sex Female 2:09 AM MANAGER ELIGIBILITY Gender Identity Not on file Sexual Orientation Not on file documented as of this encounter Plan of Treatment Not on file documented as of this encounter Procedures Procedure Name Priority Date/Time Associated Diagnosis Comments SCAN - RADIOLOGY/IMAGING 09/19/2023 9:28 PM MANAGER ELIGIBILITY CARDIOLOGY DOCUMENT SCAN 09/19/2023 9:28 PM MANAGER ELIGIBILITY documented in this encounter Results * SCAN - RADIOLOGY/IMAGING (09/19/2023 9:28 PM MANAGER ELIGIBILITY) Anatomical Region Laterality Modality Other us Provider Scanning Edited Result - Final * Cardiology Document Scan (09/19/2023 9:28 PM MANAGER ELIGIBILITY) Anatomical Region Laterality Modality Other us Provider Scanning CV CARDIAC SERVICES PROCEDURES Final Result documented in this encounter Visit Diagnoses Not on filedocumented in this encounter Care Teams Lead Simulation Modeling Engineer Relationship Specialty Start Date End Date Mikhail Garner MD [address] [place] [address] PCP - General Family Practice 08/09/23 06/29/24 Sherman De La Rosa NP [address] [place], [place] [id number] PCP - General Nurse Practitioner 06/30/24 Miguel Alamo MD [address] [place] [address] Referring Physician Obstetrics and Gynecology 05/04/21 Heri Fontenot MD [address] [facility] [address] [place] [address] Referring Physician General Surgery 09/03/21 documented as of this encounter
--- OUTSIDE RECORDS SUMMARY | 2025-06-29 09:12 | XMS_ITS ---
Author Organization [facility] Address [address] [place] [address] Care Team Providers Care Chain Repairer Name Role Phone Miguel Alamo MD Unavailable [phone] Heri Fontenot MD Unavailable Sherman De La Rosa NP Primary Care Provider Active Problems Problem Noted Date Diagnosed Date Primary hypertension 12/10/2023 Paroxysmal atrial fibrillation 09/17/2023 PVC (premature ventricular contraction) 09/17/20 23 LBBB (left bundle branch block) 09/17/2023 Chronic anticoagulation 09/17/2023 Thrombocytopenia 09/17/2023 Stage 3 chronic kidney disease 09/17/2023 S/P repair of recurrent ventral hernia 2 Partial small bowel obstruction 12/05/2021 Incisional hernia, without obstruction or gangre ne 10/17/2021 Overview (10/17/2021): Added automatically from request for surgery [id number] Pseudophakia of left eye 05/22/2019 Pseudophakia of right eye 03/06/2019 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 09/10/2018 Overview (09/10/2018): Added automatically from request for surgery [id number] Nuclear sclerotic cataract of right eye 09/10/20 18 Overview (02/20/2019): Added automatically from request for surgery [id number] 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 Nuclear sclerotic cataract of left eye 8 Overview (07/04/2018): Added automatically from request for surgery [id number] Combined forms of age-related cataract 6 Malignant neoplasm of gallbladder 08/08/2011 Overview (01/09/2018): Description: Malignant Neoplasm Of The Gallbladder Tear film insufficiency 03/27/2011 Dry eye syndrome Cataract Current Treatment and Therapy Plans No current plan information found. Past Treatment and Therapy Plans No past plan information found. Lifetime Dose Tracking * Chemical Lifetime Dose Automatic Entry Manual Entr y DLP 3,023 mGycm 3,023 mGycm 0 mGycm
--- OUTSIDE RECORDS SUMMARY | 2025-06-29 09:12 | XMS_ITS | Encounter Summary ---
Author Organization [facility] Address [address] [place] [address] Care Team Providers Care Fire Management Officer Name Role Phone Unavailable Primary Care Provider Unavailabl e Encounter Details Date Type Department Care Team (Late st Contact Info) Description 01/06/2019 Lab Requisition [facility] Care DermPath Lab [address] [facility] [place] [id number] Amanda Moya MD [address] [facility] [address] [place] [address] Social History Tobacco Use Types Packs/Day Years [...] 12:00 AM CDT) Case Report Dermatopathology Report Case: [id number] Authorizing Provider: Amanda Moya MD Collected: 01/05/2019 12:00 AM Pathologist: Delaney Castañeda MD Received: 01/06/2019 06:27 AM Specimen: Skin, left elbow 9 1:21 PM CDT DERMATOPATHOLOGY LABORATORY Final Diagnosis Specimen A. SKIN, left elbow: EPIDERMOID CYST (L72.0) 9 1:21 PM CDT DERMATOPATHOLOGY LABORATORY at 1321 CDT Clinical History Cyst, new cystic nodule, spiraderma. 9 1:21 PM CDT DERMATOPATHOLOGY LABORATORY Gross Description Specimen A: Received is one formalin filled container labeled with the patient's name and designated left elbow. The specimen consists of a punch measuring [id number], bisected. Jar 0. 1:21 PM [facility] DERMATOPATHOLOGY LABORATORY Microscopic Description Specimen A. SKIN, left elbow: Within the dermis, there is a space lined by epithelium that resembles normal epidermis and the infundibular portion of the hair follicle. 1:21 PM [facility] DERMATOPATHOLOGY LABORATORY Disclaimer An external and internal positive and negative controls are appropriate for the histochemical, immunohistochemical and immunofluorescence stain(s) in this case (if any), except where stated explicitly. The performance characteristics of the stain(s) cited in this report were developed and its performance characteristic determined by the Dermatopathology Laboratory at [facility], directed by Dr. Jorge Barrios. These tests need not be, and therefore are not, approved by the [place] Food and Drug Administration. The tests are used for clinical purposes. Billing Codes Specimen Charges Stain Charges 55140 1 1:21 PM T DERMATOPATHOLOGY LABORATORY Embedded Images 1:21 PM T DERMATOPATHOLOGY LABORATORY Pathology/Cytolog y TISSUE SPECIMEN FROM SKIN / Unknown 01/05/2019 01/06/2019 6:27 AM CDT Amanda Moya MD LAB - PATHOLOGY/CYTOLOGY ORD ERABLES Final Result DERMATOPATHOLOGY LABORATORY [facility] - Department of Dermatology [address] [place] [address] [address] [place] [address], [facility] [phone] documented in this encounter Visit Diagnoses Not on filedocumented in this encounter
--- OUTSIDE RECORDS SUMMARY | 2025-06-29 09:12 | XMS_ITS | Encounter Summary ---
Author Organization [facility] Address [address] [place] [address] Care Team Providers Care Back Hoe Operator Name Role Phone Unavailable Primary Care Provider Unavailabl e Encounter Details Date Type Department Care Team (Late st Contact Info) Description 04/17/2019 Lab Requisition [facility] Care DermPath Lab [address] [facility] [place] [id number] Amanda Moya MD [address] [facility] [address] [place] [address] Social History Tobacco Use Types Packs/Day Years [...] AM CDT) Case Report Dermatopathology Report Case: [id number] Authorizing Provider: Amanda Moya MD Collected: 04/16/2019 12:00 AM Pathologist: Delaney Castañeda MD Received: 04/17/2019 06:48 AM Specimens: A) - Skin, post scalp B) - Skin, left cheek 9 1:35 PM CDT DERMATOPATHOLOGY LABORATORY Final Diagnosis Specimen A. SKIN, post scalp: EPIDERMOID CYST (L72.0) Specimen B. SKIN, left cheek: INTRADERMAL MELANOCYTIC NEVUS (D22.39) CALCINOSIS CUTIS (L94.2) 9 1:35 PM CDT DERMATOPATHOLOGY LABORATORY at 1335 CDT Clinical History A: R/O EIC B: R/O [...] measuring 4x2x1 mm. Jar 0. 1:35 PM CDT DERMATOPATHOLOGY LABORATORY Microscopic Description [...] basophilic material consistent with calcium. 1:35 PM CDT DERMATOPATHOLOGY LABORATORY Disclaimer An external and internal positive and negative controls are appropriate for the histochemical, immunohistochemical and immunofluorescence stain(s) in this case (if any), except where stated explicitly. The performance characteristics of the stain(s) cited in this report were developed and its performance characteristic determined by the Dermatopathology Laboratory at [facility], directed by Dr. Jorge Barrios. These tests need not be, and therefore are not, approved by the [place] Food and Drug Administration. The tests are used for clinical purposes. Billing Codes Specimen Charges Stain Charges 07807 93151 1 1 9 1:35 PM CDT DERMATOPATHOLOGY LABORATORY Embedded Images 1:35 PM CDT DERMATOPATHOLOGY LABORATORY Pathology/Cytology TISSUE SPECIMEN FROM SKIN / Unknown 04/16/2019 04/17/2019 6:48 AM CDT Miscellaneous samples (specimen) TISSUE SPECIMEN FROM SKIN / Unknown 04/16/2019 04/17/2019 6:48 AM CDT us Amanda Moya MD LAB - PATHOLOGY/CYTOLOGY ORD ERABLES Final Result DERMATOPATHOLOGY LABORATORY [facility] - Department of Dermatology [address] [place] [address], 5th Floor Lab B [address] [phone] documented in this encounter Visit Diagnoses Not on filedocumented in this encounter
== END 2025-06-29 08:49 | disposition home or self-care (01) ==
PROVIDERS: PCP Nurse Practitioner; Visit Provider Podiatrist Foot & Ankle Surgery
DX: I73.89 Other specified peripheral vascular diseases (principal); I49.9 Cardiac arrhythmia, unspecified
CPT/HCPCS: 93925

== ENCOUNTER 2025-07-19 14:05 | Outpatient (CLI) | payer MEDICARE, SELFPAY ==
--- NOTE | ~2025-07-19 | MM_ITS ---
EXAMINATION: MM screening [facility] BI w genesis HISTORY: Screening TECHNIQUE: Craniocaudal and mediolateral oblique 3-D tomosynthesis images were obtained and synthetic 2-D images were generated. CAD analysis was submitted and interpreted. COMPARISON: Comparison to multiple prior studies sequentially, with oldest reviewed study dated 09/18/2019. BREAST PARENCHYMAL COMPOSITION: Not dense: There are scattered areas of fibroglandular density. FINDINGS: There is no evidence of suspicious mass, calcification, or architectural distortion to suggest malignancy in either breast. There has been no suspicious interval change. IMPRESSION: 1. No mammographic evidence of malignancy. 2. Recommend routine screening mammography in one year. BI-RADS Category 1: Negative Reviewed, dictated and finalized at location O.
== END 2025-07-19 14:06 | disposition home or self-care (01) ==
LOC: MICIMG 14:06
PROVIDERS: PCP Nurse Practitioner; Visit Provider Nurse Practitioner
DX: Z12.31 Encounter for screening mammogram for malignant neoplasm of breast (principal)
CPT/HCPCS: 77063; 77067

== ENCOUNTER 2025-09-20 07:36 | Outpatient (CLI) | payer MEDICARE, SELFPAY ==
--- NOTE | ~2025-09-20 | US_ITS ---
US renal BI 09/20/2025 08:39 Procedure: Realtime transabdominal ultrasound of the kidneys and bladder. Indication: Chronic kidney disease Comparison: No prior studies for comparison. Findings: Renal echotexture is normal bilaterally without hydronephrosis, contour deforming mass or renal calculus. The right kidney measures 10.5 cm and left kidney measures 8.4 cm. Bladder within normal limits. Impression: 1: Unremarkable renal ultrasound. No stones, masses or hydronephrosis. Reviewed, dictated and finalized at location [facility] Impression: 1: Unremarkable renal ultrasound. No stones, masses or hydronephrosis.
--- OUTSIDE RECORDS SUMMARY | 2025-09-20 07:39 | XMS_ITS | Encounter Summary ---
Author Organization [facility] Address [address] [place] [address] Care Team Providers Care Bellows Filler Name Role Phone Unavailable Primary Care Provider Unavailabl e Encounter Details Date Type Department Care Team (Late st Contact Info) Description 01/06/2019 Lab Requisition [facility] DermPath Lab [address] [facility], [place] [id number] Amanda Moya MD [address] [facility] 3 [place] [address] Social History Tobacco Use Types Packs/Day Years [...] AM CDT) Case Report Dermatopathology Report Case: [id number] Authorizing Provider: Amanda Moya MD Collected: 01/05/2019 [...] The specimen consists of a punch measuring [id number], bisected. Jar 0. 1:21 PM [facility] DERMATOPATHOLOGY LABORATORY Microscopic Description Specimen A. SKIN, left elbow: Within the dermis, there is a space lined by epithelium that resembles normal epidermis and the infundibular portion of the hair follicle. 1:21 PM [facility] DERMATOPATHOLOGY LABORATORY Disclaimer An external and internal positive and negative controls are appropriate for the histochemical, immunohistochemical and immunofluorescence stain(s) in this case (if any), except where stated explicitly. The performance characteristics of the stain(s) cited in this report were developed and its performance characteristic determined by the Dermatopathology Laboratory at [facility], directed by Dr. Jorge Barrios. These tests need not be, and therefore are not, approved by the [place] Food and Drug Administration. The tests are used for clinical purposes. Billing Codes Specimen Charges Stain Charges 57713 1 1:21 PM T DERMATOPATHOLOGY LABORATORY Embedded Images 1:21 PM T DERMATOPATHOLOGY LABORATORY Pathology/Cytolog y TISSUE SPECIMEN FROM SKIN / Unknown 01/05/2019 01/06/2019 6:27 AM CDT Amanda Moya MD LAB - PATHOLOGY/CYTOLOGY ORD ERABLES Final Result DERMATOPATHOLOGY LABORATORY [facility] - Department of Dermatology [address] [place] [address] 5th [place] [address], [facility] [phone] documented in this encounter Visit Diagnoses Not on filedocumented in this encounter
--- OUTSIDE RECORDS SUMMARY | 2025-09-20 07:39 | XMS_ITS | Encounter Summary ---
Author Organization [facility] Address [address] [place] [address] Care Team Providers Care Cow Buyer Name Role Phone Unavailable Primary Care Provider Unavailabl e Encounter Details Date Type Department Care Team (Late st Contact Info) Description 04/17/2019 Lab Requisition [facility] Care DermPath Lab [address] [facility], [place] [id number] Amanda Moya MD [address] [facility] 3 [place] [address] Social History Tobacco Use Types Packs/Day Years [...] AM CDT) Case Report Dermatopathology Report Case: [id number] Authorizing Provider: Amanda Moya MD Collected: 04/16/2019 [...] characteristic determined by the Dermatopathology Laboratory at [facility], directed by Dr. Jorge Barrios. These tests need not be, and therefore are not, approved by the [place] Food and Drug Administration. The tests are used for clinical purposes. Billing Codes Specimen Charges Stain Charges 58354 98018 1 1 9 1:35 PM CDT DERMATOPATHOLOGY LABORATORY Embedded Images 1:35 PM CDT DERMATOPATHOLOGY LABORATORY Pathology/Cytology TISSUE SPECIMEN FROM SKIN / Unknown 04/16/2019 04/17/2019 6:48 AM CDT Miscellaneous samples (specimen) TISSUE SPECIMEN FROM SKIN / Unknown 04/16/2019 04/17/2019 6:48 AM CDT us Amanda Moya MD LAB - PATHOLOGY/CYTOLOGY ORD ERABLES Final Result DERMATOPATHOLOGY LABORATORY [facility] - Department of Dermatology [address] [place] [address], 5th Floor Lab [address] [phone] documented in this encounter Visit Diagnoses Not on filedocumented in this encounter
--- OUTSIDE RECORDS SUMMARY | 2025-09-20 07:39 | XMS_ITS ---
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
--- OUTSIDE RECORDS SUMMARY | 2025-09-20 07:39 | XMS_ITS | Encounter Summary ---
Author Organization [facility] Address [address] [place] [address] Care Team Providers Care Warehouse Processor Name Role Phone Miguel Alamo MD Unavailable [phone] Heri Fontenot MD Unavailable [phone] Sherman De La Rosa NP Primary Care Provider [phone] Encounter Details Date Type Department Care Team (Late st Contact Info) Description 09/06/2025 Telephone [facility] Cardiology [address] [facility] [address] [place] [address] Amos Mandujano MD [address] [facility] [address] [place] [address] Social History Tobacco Use Types Packs/Day Years [...] on file Legal Sex Female 2:09 AM SENIOR RADIATION THERAPIST Gender Identity Not on file Sexual Orientation Not on file documented as of this encounter Miscellaneous Notes * Telephone Encounter - Vanessa Reyez, RN - 09/06/2025 3:56 PM SENIOR RADIATION THERAPIST Received and left for MAF signature OR RADIATION THERAPIST * Telephone Encounter - Vanessa Reyez RN - 09/06/2025 2:55 PM SENIOR RADIATION THERAPIST Cahty is refaxing OR RADIATION THERAPIST * Telephone Encounter - Shonda Garces - 09/06/2025 2:40 PM CST Alicia with [facility] states she faxed cardiac clearance request to [phone] on 08/25. Pt is scheduled on 09/17. Requesting call with an update. Contact: OR RADIATION THERAPIST documented in this encounter Plan of Treatment Not on file documented as of this encounter Visit Diagnoses Not on filedocumented in this encounter Care Teams Warehouse Processor Relationship Specialty Start Date End Date Sherman De La Rosa NP [address] [facility] [address] [place] [address] PCP - General Nurse Practitioner 06/30/24 Miguel Alamo MD [address] [place] [address] Referring Physician Obstetrics and Gynecology 05/04/21 Heri Fontenot MD [address] [facility] [address] [place] [address] Referring Physician General Surgery 09/03/21 documented as of this encounter
--- OUTSIDE RECORDS SUMMARY | 2025-09-20 07:39 | XMS_ITS | Clinical Summary ---
Author Organization [facility] Address [address] [facility] [place] [address] Care Team Providers Care Cold Type Artist Name Role Phone Unavailable Primary Care Provider Unavailabl e Source Comments [facility] [employer],non-owned Affiliates and Associated Physician Practices is amultiple site organization consisting of ambulatory clinics and hospital sitesin [place] and [place]. This disclosure is being madepursuant to the Care Everywhere program and may not contain all information available regarding this patient. Last updated 18.[facility] [employer] Social History Tobacco Use Types Packs/Day Years [...] DEPRESSION SCREENING 09/30/2024 COVID-19 VACCINE (1 - 2024-2 6 season) 2025 INFLUENZA VACCINE (#1) 2025 HEPATITIS [...] age to complete this topic Insurance MEDICARE [facility]
== END 2025-09-20 07:37 | disposition home or self-care (01) ==
PROVIDERS: PCP Nurse Practitioner; Visit Provider Internal Medicine Nephrology
DX: N18.32 Chronic kidney disease, stage 3b (principal)
CPT/HCPCS: 76770